=== PATIENT | male | born 1935 | race Caucasian/White ===

== ENCOUNTER → 2018-10-07 15:34 | Outpatient (CLI) | payer MEDICARE, OTHER, SELFPAY ==
[2018-10-07 18:03] LABS: Anion Gap 8 (5-15); BUN 26 mg/dL (7-18); BUN/Creat Ratio 25.5 RATIO (10-20); Calcium,Total 8.9 mg/dL (8.5-10.1); Chloride 105 mmol/L (98-107); Creatinine, Serum 1.02 mg/dL (0.70-1.30); EST Glomerular Filtration Rate 74 mL/min (>60); Est Glom Filt Rate - Afr Amer 90 mL/min (>60); Ferritin 518 ng/mL (26-388); Glucose 114 mg/dL (74-106); Iron 88 ug/dL (65-175); Potassium 4.1 mmol/L (3.5-5.1); Sodium Level 140 mmol/L (136-145); T4 Free Direct 0.87 ng/dL (0.76-1.46); Thyroid Stim Hormone (TSH) 6.21 uIU/mL (0.358-3.74)
[2018-10-07 18:07] LABS: Absolute Lymphocyte Count 2.55 X10^3/ul (0.83-4.51); Absolute Neutrophil Count 4.1 X10^3/uL (2.0-7.7); Basophil# 0.07 X10^3/uL; Basophil% 0.9 % (0-1); Eosinophil# 0.37 X10^3/uL; Eosinophils% 4.7 % (0-5); Hematocrit 42.4 % (40-54); Hemoglobin 14.1 g/dl (13.0-16.5); Lymphocyte # 2.55 X10^3/ul (4.0); Lymphocyte % 32.7 % (19-41); Mean Corp Hgb Conc 33.3 g/gl (32-36); Mean Corpuscular Hgb 33.7 pg (27.0-32.0); Mean Corpuscular Volume 101.4 fL (80-94); Mean Platelet Vol. 12.2 fl (6.2-12.0); Monocyte# 0.67 X10^3/uL; Monocyte% 8.6 % (0-10); Neutrophil # 4.12 X10^3/uL (2.7-7.7); Platelet Count 244 K/mm3 (150-450); RBC Distribution Width CV 23.8 % (11.6-14.6); RBC Distribution Width SD 88.4 fl (35.1-43.9); Red Blood Count 4.18 M/mm3 (4.6-6.2); White Blood Count 7.8 K/mm3 (4.4-11.0)
[2018-10-07 18:11] LABS: Differential Indicated SCAN CRITERIA MET; POSITIVE COUNT NO; POSITIVE DIFFERENTIAL NO; POSITIVE MORPHOLOGY YES
[2018-10-07 19:35] LABS: Platelet Estimate ADEQUATE (ADEQ); Platelet Morphology LARGE
[2018-10-07 19:36] LABS: Anisocytosis 3+; Differential Comment SCANNED; Reactive Lymphocyte RARE
--- OUTSIDE RECORDS SUMMARY | 2018-12-03 08:32 | XMS RPT_ITS ---
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 criteria. Please note revised GLUCOSE reference range effective 2017. LAB L501.1000 7-18 mg/dL High BUN 26 LAB L501.1100 0.70-1.30 mg/dL Normal CREAT,SERUM 1.02 Result Comment: The validity of the calculated GFR AND GFRAA in patients over 70 years has not been determined. Clinical correlation is essential. LAB L501.1110 >60 mL/min Normal EST GFR 74 Result Comment: Non- GFR Calc LAB L501.1115 >60 mL/min Normal EST GFR - AA 90 Result Comment: GFR Calc LAB L501.1300 10-20 RATIO High BUN/CRE 25.5 LAB L501.2200 8.5-10.1 mg/dL CA Normal 8.9 LAB L501.5300 136-145 mmol/L NA Normal 140 LAB L501.5600 3.5-5.1 mmol/L K Normal 4.1 Result Comment: Slight Hemolysis, Result may be falsely increased. LAB L501.5900 98-107 mmol/L Normal CL 105 LAB L501.6100 21.0-32.0 mmol/L Normal CO2 27.0 LAB L501.6200 5-15 Normal 8 GAP Performed By: #### L500.2500, L501.9520, L503.6150, L503.6550, L506.0400 #### [facility] [address] [place], [place], [id number] THYROID STIM HORMONE Collected: 10/07/2018 Status: F Source: [facility] (TSH) 3:38 PM [facility] REPOSITORY TYPE CODE TESTS RESULT OUT OF RANGE REFERENCE UNITS LAB L501.9520 0.358-3.74 uIU/mL High TSH 6.21 Performed By: #### L500.2500, L501.9520, L503.6150, L503.6550, L506.0400 #### [facility] [address] [place], [place], [id number] IRON Collected: 10/07/2018 Status: F Source: [facility] 3:38 PM [facility] REPOSITORY TYPE CODE TESTS RESULT OUT OF RANGE REFERENCE UNITS LAB L503.6150 65-175 ug/dL Normal IRON 88 Result Comment: Slight Hemolysis, Result may be falsely increased. Performed By: #### L500.2500, L501.9520, L503.6150, L503.6550, L506.0400 #### [facility] [address] [place], [place], [id number] FERRITIN Collected: 10/07/2018 Status: F Source: [facility] 3:38 PM [facility] REPOSITORY TYPE CODE TESTS RESULT OUT OF REFERENCE UNITS RANGE LAB L503.6550 26-388 ng/mL High FERRITIN 518 Performed By: #### L500.2500, L501.9520, L503.6150, L503.6550, L506.0400 #### [facility] [address] [place], [address] T4 FREE DIRECT Collected: 10/07/2018 Status: F Source: [facility] 3:38 PM [facility] REPOSITORY TYPE CODE TESTS RESULT OUT OF RANGE REFERENCE UNITS LAB L506.0400 0.76-1.46 ng/dL Normal T4 FREE 0.87 DIRECT Performed By: #### L500.2500, L501.9520, L503.6150, L503.6550, L506.0400 #### [facility] [address] [place], [address] CBC W/DIFF, AUTOMATED Collected: 10/07/2018 Status: F Source: [facility] 3:38 PM [facility] REPOSITORY TYPE CODE TESTS RESULT OUT OF RANGE REFERENCE UNITS LAB L100.1000 4.4-11.0 K/mm3 Normal WBC 7.8 LAB L100.1200 4.6-6.2 M/mm3 Low RBC 4.18 LAB L100.1300 13.0-16.5 g/dl Normal HGB 14.1 LAB L100.1400 40-54 % Normal HCT 42.4 LAB L100.1500 80-94 fL High MCV 101.4 LAB L100.1600 27.0-32.0 pg High MCH 33.7 LAB L100.1700 32-36 g/gl Normal MCHC 33.3 LAB L100.1810 11.6-14.6 % High RDW CV 23.8 LAB L100.1820 35.1-43.9 fl High RDW SD 88.4 LAB L100.1900 150-450 K/mm3 Normal PLT 244 LAB L100.2000 6.2-12.0 fl High MPV 12.2 LAB L100.2100 47-70 % Normal NEUT% 53.0 LAB L100.2200 19-41 % Normal LY% 32.7 LAB L100.2300 0-10 % Normal MONO% 8.6 LAB L100.2400 0-5 % Normal EO% 4.7 LAB L100.2500 0-1 % Normal BASO% 0.9 LAB L100.2550 0.0-0.9 % Normal IM GRAN % 0.100 Result Comment: IG% - Immature Granulocytes (promyelocytes, myelocytes and metamyelocytes) > 1% indicates that a LEFT SHIFT is Present. LAB L100.2620 2.0-7.7 X10 3/uL Normal Absolute Neut 4.1 LAB L100.2720 0.83-4.51 X10 3/ul Normal Absolute Lymph 2.55 LAB L100.4500 Normal SMEAR COMMENT SCANNED Result Comment: FEW BANDS NOTED ON SLIDE REVIEW LAB L100.4700 Normal RARE REACTIVE LYMPH LAB L100.5500 ADEQ Normal PLT EST ADEQUATE LAB L100.5650 Normal PLT LARGE MORPH Result Comment: RARE GIANT PLATELETS NOTED LAB L100.7300 Normal ANISO 3+ Performed By: #### L100.0100 #### [facility] [address] [place], [address] ALLERGIES ALLERGIES DATE TYPE / CODE NAME / CODE REACTION SEVERITY SOURCE 12/25/2013 Drug No Known Unknown [facility] Allergy/4160 Allergies/F00 Hospital 22309(SNOMED 0304238(RXNOR Repository CT) M) ENCOUNTERS ENCOUNTERS ADMIT/DISCHARGE ACCOUNT ADMITTING ENCOUNTER LOCATION SOURCE NUMBER CLASS 10/07/2018 [id number] Ambulatory [address] ing:BFHLAB Repository PAYERS PAYERS ENCOUNTER GUARANTOR PAYER SUBSCRIBER SOURCE 10/07/2018 Marily Vallejo Primary Marily Marinelli [id number] [facility] [id number] Number: Repository [id number]: [phone] [id number] [phone] () Date:2018-10-07 10/07/2018 Secondary Marily Marinelli [facility] Number: [id number] 11Effective Repository Date:[id number], [place] [address]OK: 10/07/2018 Tertiary NOT GIVENUNK [facility] Insurance:SELF PAY [facility] Number: Effective Repository Date:2018-10-07
== END ==
PROVIDERS: Family Provider Family Medicine; PCP Family Medicine; Visit Provider Family Medicine
DX: E03.9 Hypothyroidism, unspecified (principal); E83.19 Other disorders of iron metabolism; D64.9 Anemia, unspecified
CPT/HCPCS: 36415; 80048; 82728; 83540; 84439; 84443; 85025

== ENCOUNTER → 2018-11-25 13:57 | Outpatient (CLI) | payer MEDICARE, OTHER, SELFPAY ==
[2018-11-25 17:52] LABS: T4 Free Direct 1.13 ng/dL (0.76-1.46); Thyroid Stim Hormone (TSH) 0.57 uIU/mL (0.358-3.74)
== END ==
PROVIDERS: Family Provider Family Medicine; PCP Family Medicine; Visit Provider Family Medicine
DX: E03.9 Hypothyroidism, unspecified (principal)
CPT/HCPCS: 36415; 84439; 84443

== ENCOUNTER → 2020-04-21 10:12 | Outpatient (CLI) | payer MEDICARE, OTHER, SELFPAY ==
[2013-12-29 09:51] VITALS: BMI 25.8
[2020-04-21 12:36] LABS: Thyroid Stim Hormone (TSH) 1.47 uIU/mL (0.358-3.74)
== END ==
PROVIDERS: PCP Family Medicine; Visit Provider Family Medicine
DX: E03.9 Hypothyroidism, unspecified (principal)
CPT/HCPCS: 36415; 84439; 84443

== ENCOUNTER → 2025-09-01 | Outpatient (CLI) | payer MEDICARE, OTHER, SELFPAY ==
--- OUTSIDE RECORDS SUMMARY | 2025-09-01 11:21 | XMS RPT_ITS | CCD ---
Author Organization [facility] Inform ion Partnership [facility] Care Team Providers Care Septic Tank Servicer Name Role Phone MAGI PRITCHARD (TURNER MACHINE OPERATOR) Unavailable Unavailable Results Test Name Value Interpretation Reference Range Facil ity Urgent Care Visit Reporton 0 07-02-2020 Urgent Care Visit Report [facility] [address] [place] [address] OFFICE VISIT Date of Service: 07/02/20 MR#: [id number] Acct: [id number] Name: MARILY BONE Rep #: [id number] : 1935 Provider: SHILPI Wall Age/Sex: 84/M Location: [facility] Status: Signed Intake Vital Signs 07/02/20 BMI 25.8 07/02/20 Height 5 ft 10.5 in 07/02/20 Weight: 182 lb 07/02/20 BMI 25.7 07/02/20 BP 142/64 H 07/02/20 Blood Pressure Location Lt brachial 07/02/20 Position Sitting 07/02/20 Respiration 16 07/02/20 Pulse 97 07/02/20 Pulse Source Monitor 07/02/20 Temp 97.3 F L 07/02/20 Temp Source Temporal 07/02/20 Pulse Oximetry (%) 98 07/02/20 Oxygen Delivery Method room air Intake Visit Reasons: BEE STING LEFT HAND Allergies No Known Allergies Allergy (Verified 07/02/20 08:24) Medications Calcium (Elemental) [Os-Isaías 500] 500 mg PO BIDCM 12/25/13 [History Confirmed 07/02/20] Cholecalciferol (Vitamin D3) [Vitamin D3] 1,000 unit PO DAILY 12/25/13 [History Confirmed 07/02/20] Levothyroxine [Synthroid] 125 mcg PO DAILY 12/25/13 [History Confirmed 07/02/20] prednisone 10 mg tablet 10 mg PO QDAY 12 Days #30 tab 07/02/20 [Rx Confirmed 07/02/20] ON LICENSE OF [facility] Medical History (Updated 07/02/20 @ 08:32 by SHILPI Albrecht) History of prostate cancer (Acute) History of skin cancer (Acute) Incontinence (Acute) Thyroid disease (Acute) unexplained bruises (Acute) Surgical History (Updated 07/02/20 @ 08:30 by Nick Arguello) History of hernia surgery (Acute) Social History (Updated 07/02/20 @ 08:33 by SHILPI Albrecht) Smoking Status: Never smoker [facility] HPI Details: MARILY BONE, is a 84 M who presents to the office today for evaluation of bee sting to the left hand and right forearm. Patient states that yesterday morning while he was outside he started to be stung in the left hand under a glove and right forearm up his shirt. He states that since then the left hand in particular has gotten worse with increased swelling and redness as well as stiffness due to the swelling. He denies numbness, tingling or loss range of motion. No shortness of breath, difficulty breathing or chest pain. No other associated symptoms or alleviating/aggravating factors. ROS Const Constitutional: Positive for other (6 system ROS completed with pertinent findings in HPI otherwise normal.) Exam Const General: cooperative, healthy appearing [facility] Head: normocephalic, atraumatic Ears: hearing grossly normal bilaterally Nose: external nose normal Face and sinus: normal facial exam, face symmetric Mouth: oral mucosae normal Throat: posterior oropharynx normal Eyes General: appearance normal, both eyes and all related structures Resp Effort Inspection: normal respiratory effort Auscultation: Bilateral: Clear to Auscultation Cardio Palpation: normal PMI Rate: regular rate Rhythm: regular rhythm Skin Other: Soft tissue swelling and erythema to the dorsum of the left hand with a centralized area where the stinger was. Additional erythematous and slightly raised area to the right forearm with very minimal swelling. There is no streaking or axillary lymph node involvement. Neuro General: alert, CN's II-XI intact bilaterally Psych Appearance: grossly normal Mental Status: mental status grossly normal Assessment Plan Problems 1. Accidental bee sting T63.441A Status Acute Plan Prednisone as prescribed today. Encouraged to get plenty of rest, drink lots of clear liquids, and use Tylenol or Ibuprofen (unless contraindicated) for comfort. Patient also educated on other symptomatic management techniques. To be seen in 7-10 days if no improvement; sooner if worsening of symptoms. Patient advised of potential red flags and when appropriate to report to the ED. Patient verbalized understanding and agreement with all the above. Medications New: prednisone Take 4 tabs once daily days 1-3 3 tabs once daily days 4-6 2 tabs once daily days 7-9 and 1 tab once daily days 10-12. 10 mg PO QDAY 12 days 30 tabs 0RF L25.9 Coding Level of Care Code Off vis,new,level 3 Diagnoses Accidental bee sting T63.441A 07/02/20832 Date Estuardo Hackett Signature: Date (if applicable) CC: Normal [facility] T4 Free Directon 04-21-2020 T4 FREE DIRECT 1.00 ng/dL Normal 0.76-1.46 [facility] Comment on above: Performed By: #### [id number], L506.0400 #### [facility] [address] [place], [place], [id number] Thyroid Stim Hormone (TSH)on 04-21-2020 TSH Qn 1.47 uIU/mL Normal 0.358-3.74 [facility] Comment on above: Performed By: #### [id number], L506.0400 #### [facility] [address] [place], [place], [id number] CNOVon 06-14-2017 CNOV Office Visit ([facility]) OCTAVIANO BONE ([id number]) 1935 MDate Time Provider Department06/14/17 8:30 AM ISHA MORGAN (SHASHI) [facility] During your visit today, we recorded the following information about you: Temperature Pulse Respiration Blood pressure 98.2 degrees 76/minute 16/minute 128/66 Weight 80.4 kgIngbryn Morgan CNP 06/14/2017 9:35 AM SignedHPI Patient is a is a reliable 81 year old male with a 3 day history or leftear pain. States the pain is a ANDquot;jabbingANDquot; pain that has kept him uplast night. States he thinks it may be draining. States it feelsANDquot;pluggedANDqu ot;. {t states he wears hearing aids daily. Nothing makes itbetter or worse. No other concerns at this time.Review of SystemsConstitutional: Negative for chills, fever and malaise/fatigue.HENT: Positive for ear pain (left). Negative for congestion and sore throat.Respiratory: Positive for cough. Negative for sputum production, shortness ofbreath and wheezing.Cardiovascular: Negative.Gastrointestinal : Negative for nausea and vomiting.Musculoskeletal: Negative for myalgias.Neurological: Negative for dizziness and headaches.Endo/Heme/Aller gies: Negative for environmental allergies.PAST MEDICAL HISTORYDiagnosis Date- 1St degree AV block 12/25/13- BCC (basal cell carcinoma of skin)- Erectile dysfunction- Macrocytosis without anemia- Malignant neoplasm prostate (HCC)- Unspecified hypothyroidism- Urinary incontinencePAST SURGICAL HISTORYNo date: APPENDECTOMY08/10/08: COLONOSCOP W/ OR W/O [facility] SPECNo date: CYSTOSCOPY12/29/13: HERNIA REPAIR HX Comment: Laparoscopic left11/2006: MOHS ANY STAGE EA ADD BLOCK Comment: BCC right lateral [id number]: PAST SURGICAL HISTORY OF Comment: suprapubic prostatectomy02/2011: PAST SURGICAL HISTORY OF Comment: right [id number]: PAST SURGICAL HISTORY OF Comment: left cataractALLERGIES Review of patient's allergies indicates no known allergies.MEDICATIONSMisc ellaneous Medical Supply ([facility]) misc Dx: urinaryincontinence, prostate cancerlevothyroxine (SYNTHROID) 75 mcg tablet Take 1 tablet by mouth once daily. Takeon empty stomach. For ThyroidCALCIUM 500 MG TAB Take one(1) tablet twice daily.CHOLECALCIFEROL (VITAMIN D3) 1,000 UNIT TAB Take one(1) tablet two(2) timesdaily.FAMILY HISTORY Heart Father Cancer Mother Comment: abdominal Stroke FatherSocial HistorySubstance Use Topics- Smoking status: Never Smoker- Smokeless tobacco: Not on file- Alcohol use NoBP 128/66 Pulse 76 Temp 36.8 ?C (98.2 ?F) (Tympanic) Resp 16 Wt 80.4 kg(177 lb 3.2 oz) BMI 25.43 kg/n1Mwfgmbov ExamConstitutional: He is well-developed, well-nourished, and in no distress. Vitalsigns are normal.Mildly ill.HENT:Head: Normocephalic and atraumatic.Right Ear: Tympanic membrane, external ear and ear canal normal.Left Ear: Tympanic membrane normal.Nose: No mucosal edema or rhinorrhea. Right sinus exhibits no maxillary sinustenderness and no frontal sinus tenderness. Left sinus exhibits no maxillarysinus tenderness and no frontal sinus tenderness.Mouth/Throat: Uvula is midline, oropharynx is clear and moist and mucousmembranes are normal. No oropharyngeal exudate, posterior oropharyngeal edemaor posterior oropharyngeal erythema.Left ear with tragal pain with manipulation. Drainage noted.Neck: Neck supple.Cardiovascular: Normal rate, regular rhythm and normal heart sounds.Pulmonary/Chest: Effort normal and breath sounds normal. He has no wheezes. Hehas no rales.Lymphadenopathy: Head (right side): No submental, no submandibular and no tonsillaradenopathy present. Head (left side): No submental, no submandibular and no tonsillaradenopathy present. He has no cervical adenopathy.Submandibular fullness.Neurological: He is alert.Skin: Skin is warm and dry.Nursing note and vitals reviewed.ASSESSMENT/PLAN: 1. Acute otitis externa of left ear, unspecified type - ICD9: 380.10, ICD10:H60.502- Will start ABX drops- Keep ear clean and dry- Tylenol or Ibuprofen for pain- Avoid hearing aide in the affected ear until infection is resolved- GKBTNFTY-VAIHWKSHH-OISBMP ORT 3.5 MG-10,000 UNIT/ML-1 % EAR DROPS,SUSPPrescription instructions reviewed with patient as applicable. Patient advisedif symptoms do not improve in 2-3 days or if symptoms worsen sooner, to contacttheir primary care physician. Potential red flag symptoms discussed with thepatient. Reviewed appropriate action plan to take if red flag symptoms occur.Patient agreeable to treatment plan.Isha Morgan CNPReferring Provider: SELF [[id number]]Allergies As of Date: 06/14/2017(No Known Allergies)Date Reviewed: 06/14/2017Reviewed by: Isha (Shashi) Cathy - Fully AssessedReason for Visit: left ear pain [Other] Cmt: x 2 daysPrimary Visit Diagnosis:Acute otitis externa of left ear, unspecified type [H60.502]Order(s):neomyci z-vilpdghll-tyhplhwhlpcra e (CORTISPORIN) 3.5-10,000-1 mg/mL-unit/mL-% otic suspensionUse 4 Drops in the left ear four times daily for 7 days.Disp: 1 BottleRfl: 0Prescriptions as of 06/14/2017 Sig: MISCELLANEOUS MEDICAL SUPPLY * Dx: urinary incontinence, pro* LEVOTHYROXINE 75 MCG TABLET Take 1 tablet by mouth once d* * CALCIUM 500 MG TABLET Take one(1) tablet twice eliana* * CHOLECALCIFEROL (VITAMIN D3) * Take one(1) tablet two(2) anthony* GNLEWIVD-SPUYTBDLZ-SZSLIA ORT * Use 4 Drops in the left ear f*Problem List As Of Date 06/14/2017 Noted Resolved 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] INVALID FOR* Unspecified hypothyroidism [E03.9] INVALID FOR* Priority: A Hypertrophy of prostate with urinary obstructio*INVALID FOR*05/27/2013 Open wound(s) (multiple) of unspecified site(s)*INVALID FOR*06/14/2012 ACTINIC KERATOSES (Premalignant AK's) [L57.0] INVALID FOR* Priority: D Neoplasm Uncertain Behavior (NUB) Skin: R/O BCC*INVALID FOR*06/14/2012 ACTINIC DAMAGE///CHR SOLAR SKIN DAMAGE NOS [L57*INVALID FOR*11/22/2011 Scar condition and fibrosis of skin [L90.5] INVALID FOR*06/14/2012 PERS HX BCC SKIN CANCER: 02/01/2005: 3 BCC's R s*INVALID FOR*06/14/2012 SOLAR LENTIGINES///DYSCHROMIA OTHER [L81.9] INVALID FOR*06/14/2012 Elevated prostate specific antigen (PSA) [R97.2*INVALID FOR*05/27/2013 Malignant neoplasm of prostate [C61] INVALID FOR* Priority: A More... URETER INJURY-CLOSED [S37.10XA] INVALID FOR* POSTOP URETHRAL STRICTUR [QQC2362] INVALID FOR* H/O BCC////MALIG NEOPLASM SKIN FACE NEC [173.3] INVALID FOR*06/14/2012 PMH - PAST MEDICAL HISTORY OF 06/14/2012 More... Stress incontinence, male [N39.3] INVALID FOR* Priority: A Benign neoplasm of skin of trunk, except scrotu*INVALID FOR*06/14/2012 Seborrheic Dermatitis: chest area [L21.8] INVALID FOR* Priority: D Rosacea: localized R cheek face flushed scar [L*INVALID FOR* Priority: D BNC (bladder neck contracture) [N32.0] INVALID FOR* Eczema intertrigo [L30.4] INVALID FOR* Priority: D Irritant contact dermatitis [L24.9] INVALID FOR* Priority: D PERS HX BCC SKIN CANCER: R Jawline Face: *INVALID FOR* Priority: D Xerosis cutis [L85.3] INVALID FOR* Priority: D Macrocytosis without anemia [D75.89] Erectile dysfunction [N52.9] Continuous leakage of urine [N39.45] INVALID FOR*Prescriptions ordered this encounter Disp Refills Start End CBDFJEJX-UQQNYOPCD-DOAIRT ORT 3.5 MG-* 1 John* 0 06/14/2017 06/21/2017 Route: LEFT EAR Sig: Use 4 Drops in the left ear four times daily for 7 days. Status:Closed by ISHA MORGAN CNP on 06/14/17 [facility] PROGRESSon 06-14-2017 PROGRESS HNO ID: [id number] thor: Isha (Shashi) FishutService: (none)Author Type: Nurse PractitionerType: Progress NotesFiled: 06/14/2017 9:35 AMNote Text:HPI Patient is a is a reliable 81 year old male with a 3 day history orleft ear pain. States the pain is a "jabbing" pain that has kept him uplast night. States he thinks it may be draining. States it feels"plugged". {t states he wears hearing aids daily. Nothing makes it betteror worse. No other concerns at this time.Review of SystemsConstitutional: Negative for chills, fever and malaise/fatigue.HENT: Positive for ear pain (left). Negative for congestion and sorethroat.Respiratory: Positive for cough. Negative for sputum production, shortnessof breath and wheezing.Cardiovascular: Negative.Gastrointestinal : Negative for nausea and vomiting.Musculoskeletal: Negative for myalgias.Neurological: Negative for dizziness and headaches.Endo/Heme/Aller gies: Negative for environmental allergies.PAST MEDICAL HISTORYDiagnosis Date- 1St degree AV block 12/25/13- BCC (basal cell carcinoma of skin)- Erectile dysfunction- Macrocytosis without anemia- Malignant neoplasm prostate (HCC)- Unspecified hypothyroidism- Urinary incontinencePAST SURGICAL HISTORYNo date: APPENDECTOMY08/10/08: COLONOSCOP W/ OR W/O [facility] SPECNo date: CYSTOSCOPY12/29/13: HERNIA REPAIR HX Comment: Laparoscopic left11/2006: MOHS ANY STAGE EA ADD BLOCK Comment: BCC right lateral [id number]: PAST SURGICAL HISTORY OF Comment: suprapubic prostatectomy02/2011: PAST SURGICAL HISTORY OF Comment: right [id number]: PAST SURGICAL HISTORY OF Comment: left cataractALLERGIES Review of patient's allergies indicates no known allergies.MEDICATIONSMisc ellaneous Medical Supply ([facility] [facility] [place]x:urinary incontinence, prostate cancerlevothyroxine (SYNTHROID) 75 mcg tablet Take 1 tablet by mouth once daily.Take on empty stomach. For ThyroidCALCIUM 500 MG TAB Take one(1) tablet twice daily.CHOLECALCIFEROL (VITAMIN D3) 1,000 UNIT TAB Take one(1) tablet two(2)times daily.FAMILY HISTORY Heart Father Cancer Mother Comment: abdominal Stroke FatherSocial HistorySubstance Use Topics- Smoking status: Never Smoker- Smokeless tobacco: Not on file- Alcohol use NoBP 128/66 Pulse 76 Temp 36.8 ?C (98.2 ?F) (Tympanic) Resp 16 Wt80.4 kg (177 lb 3.2 oz) BMI 25.43 kg/l6Gskorslx ExamConstitutional: He is well-developed, well-nourished, and in no distress.Vital signs are normal.Mildly ill.HENT:Head: Normocephalic and atraumatic.Right Ear: Tympanic membrane, external ear and ear canal normal.Left Ear: Tympanic membrane normal.Nose: No mucosal edema or rhinorrhea. Right sinus exhibits no maxillarysinus tenderness and no frontal sinus tenderness. Left sinus exhibits nomaxillary sinus tenderness and no frontal sinus tenderness.Mouth/Throat: Uvula is midline, oropharynx is clear and moist and mucousmembranes are normal. No oropharyngeal exudate, posterior oropharyngealedema or posterior oropharyngeal erythema.Left ear with tragal pain with manipulation. Drainage noted.Neck: Neck supple.Cardiovascular: Normal rate, regular rhythm and normal heart sounds.Pulmonary/Chest: Effort normal and breath sounds normal. He has nowheezes. He has no rales.Lymphadenopathy: Head (right side): No submental, no submandibular and no tonsillaradenopathy present. Head (left side): No submental, no submandibular and no tonsillaradenopathy present. He has no cervical adenopathy.Submandibular fullness.Neurological: He is alert.Skin: Skin is warm and dry.Nursing note and vitals reviewed.ASSESSMENT/PLAN: 1. Acute otitis externa of left ear, unspecified type - ICD9: 380.10,ICD10: H60.502- Will start ABX drops- Keep ear clean and dry- Tylenol or Ibuprofen for pain- Avoid hearing aide in the affected ear until infection is resolved- YCOICUPJ-RIVDFRMYQ-XLHASE ORT 3.5 MG-10,000 UNIT/ML-1 % EAR DROPS,SUSPPrescription instructions reviewed with patient as applicable. Patientadvised if symptoms do not improve in 2-3 days or if symptoms worsensooner, to contact their primary care physician. Potential red flagsymptoms discussed with the patient. Reviewed appropriate action plan totake if red flag symptoms occur. Patient agreeable to treatment plan.Isha Morgan CNP Normal [facility] Encounters Encounter Date Encounter Type Care Provider Facility Start: 06-14-2017 End: 06-14-2017 Ambulatory MAGI (TURNER MACHINE OPERATOR) [facility] Summary Purpose Family History No Family History Records FoundNo Family History Records Found Advance Directives No Advanced Directives Records FoundNo Advanced Directives Records Found Additional Source Comments (unrecognized sect ion and content) No Status Records FoundNo Status Records Found INFORMATION SOURCE (unrecogn ized section and content) DATE CREATED AUTHOR 05/07/2018 [facility] DATE CREATED AUTHOR AUTHOR'S ORGANIZ ATION 07/02/2020 [facility] FOR RECORDS PERTAINING TO PATIENTS WHO ARE OR HAVE BEEN ENROLLED IN A CHEMICAL DEPENDENCY/SUBSTANCEABUSE PROGRAM, SOME INFORMATION MAY BE OMITTED. This clinical summary was aggregated from multiple sources. Caution should be exercised in using it in the provision of clinical care. This summary normalizes information from multiple sources, and as a consequence, information in this document may materially change the coding, format and clinical context of patient data. In addition, data may be omitted in some cases. CLINICAL DECISIONS SHOULD BE BASED ON THE PRIMARY CLINICAL RECORDS. [employer] provides no warranty or guarantee of the accuracy or completeness of information in this document.
--- NOTE | 2025-09-01 11:29 | RAD_ITS ---
PROCEDURE: CHEST PA AND LATERAL 09/01/2025 REASON FOR EXAM: SOB TECHNIQUE: Procedure Code: RADCXR Modality: DX Procedure: CHEST PA AND LATERAL COMPARISON: None FINDINGS: There is cardiomegaly, pulmonary venous hypertension and pulmonary interstitial edema consistent with congestive heart failure. There are no significant pleural effusions. There is calcific vascular disease of the thoracic aorta. There is mild dextroscoliosis of the thoracolumbar spine. The upper abdominal bowel gas pattern is normal. RAD/Chest PA and Lateral IMPRESSION: Mild congestive heart failure. Reading Location: [place] [address]
[2025-09-01 12:10] LABS: Hematocrit 35.3 % (40-54); Hemoglobin 11.9 g/dL (13.0-16.5); Immature Granulocytes Count 0.170 X10^3/uL (0.0-0.0); Mean Corp Hgb Conc 33.7 g/dL (32-36); Mean Corpuscular Volume 96.7 fL (80-94); Mean Platelet Vol. 11.9 fl (6.2-12.0); NRBC Flagged by Analyzer 0 % (0-5); POSITIVE MORPHOLOGY YES; Platelet Count 328 K/mm3 (150-450); RBC Distribution Width CV 27.2 % (11.6-14.6); RBC Distribution Width SD 94.3 fl (35.1-43.9); Red Blood Count 3.65 M/mm3 (4.6-6.2); White Blood Count 11.1 K/mm3 (4.4-11.0)
[2025-09-01 12:55] LABS: AST(SGOT) 39 U/L (<=37); Alanine Aminotransfer ALT/SGPT 32 U/L (<=46); Albumin, Serum 4.1 g/dL (3.4-4.8); Alkaline Phosphatase 98 U/L (40-129); Anion Gap 9 (5-15); BUN 17 mg/dL (4-19); BUN/Creat Ratio 19.4 RATIO (10-20); Calcium,Total 9.7 mg/dL (7.6-11.0); Carbon Dioxide 25.0 mmol/L (21.0-32.0); Chloride 103 mmol/L (98-108); Globulin 2.7 g/dL (2.2-4.2); Glucose 141 mg/dL (70-99); Potassium 4.6 mmol/L (3.3-5.1); Pro- Brain NATRIURETIC PEPTIDE 606 pg/mL (<=1800)
[2025-09-01 13:14] LABS: Differential Indicated SCAN CRITERIA MET
[2025-09-01 13:16] LABS: Anisocytosis 1+
[2025-09-01 14:36] LABS: D-Dimer Quantitative (DVT/PE) 0.80 FEU/ug/m (0.27-0.49)
== END | disposition home or self-care (01) ==
LOC: LAB 10:59
PROVIDERS: PCP Nurse Practitioner Family; Referring Provider Nurse Practitioner Family; Visit Provider Nurse Practitioner Family
DX: R06.02 Shortness of breath (principal)
CPT/HCPCS: 36415; 71046; 80053; 83880; 85025; 85379

== ENCOUNTER 2025-09-21 11:17 | Emergency (ER) | payer MEDICARE, OTHER, SELFPAY ==
[2025-09-21] VITALS (9 sets, daily range): BP systolic 120–162; BP diastolic 59–73; PULSE 62–98; RESP 15–26; TEMP 36.3–36.7; O2SAT 93–100; BMI 26.2
--- NOTE | 2025-09-21 11:34 | EKG12_ITS ---
Test Reason : SOB Blood Pressure : */* mmHG Vent. Rate : 76 BPM Atrial Rate : 76 BPM P-R Int : 210 ms QRS Dur : 136 ms QT Int : 426 ms P-R-T Axes : 47 -17 28 degrees QTcB Int : 479 ms Sinus rhythm with 1st degree A-V block Right bundle branch block Abnormal ECG Confirmed by Lance Monzon ([id number]), health editor JONNIE MOODY ([id number]) on 09/22/2025 10:34:10 AM Referred By: Confirmed By: Lance Monzon
--- NOTE | 2025-09-21 12:00 | EDS_ITS ---
HPI History of Present Illness Chief Complaint: Shortness of Breath Narrative Narrative: Patient is a 89-year-old male with a past medical history of of thyroid disease, prostate cancer, skin cancer who presented to the emergency department the chief complaint of shortness of breath and abnormal CT of his chest results. He states that his shortness of breath has been going on for a while however has been progressively worsening he states that last week he had blood work obtained by his primary care physician and a chest x-ray. He states that they then proceeded to order a CT of his chest today and by the time he was home there was a message on the answering machine and he was advised to come to the emergency department as there is concern for blood clots. He denies any history of blood clots denies any recent travel history. He states he has not had a colonoscopy in a significant mount time he states that has been many years and states that his stools have been irregular lately as well but denies any black stools denies any blood in the stool [facility] Medical History Incontinence unexplained bruises Thyroid disease History of prostate cancer History of skin cancer Home Medications Medication Instructions Recorded Last Taken Type calcium carbonate 500 mg PO BIDCM 12/25/13 Unk nown History cholecalciferol (vitamin D3) 50 1,000 unit PO DAILY Unknown History mcg (2,000 unit) tablet levothyroxine 125 mcg tablet 125 mcg PO DAILY 12/25/13 Unknown History apixaban 5 mg (74 tabs) tablets in See Rx Instructions PO .COMPLEX 09/21/25 Unknown Rx a dose pack (Eliquis DVT-PE Treat #74 tabs 30D Start) Allergy/AdvReac Type Severity Reaction Status Date / Time No Known Allergies Allergy Verified 09/21/25 11:18 Surgical History History of hernia surgery Social History Smoking Status: Never smoker ROS ROS ED ROS Narrative Constitutional: Denies any fevers, chills Cardiovascular: Complains of chest heaviness denies palpitations Respiratory: Complains of shortness of breath Abdomen: Denies abdominal pain nausea vomiting : Denies any urinary symptoms Neurological: Denies any numbness, some tingling Musculoskeletal: Denies back pain Skin: Denies any rashes or lesions EXAM Physical Exam Narrative Exam Narrative: General: Patient is lying in bed rest comfortably did not appear to be in acute distress Head: Atraumatic, normocephalic Eyes: PERRL bilaterally, EOMI bilaterally, no conjunctival injection noted Neck: Soft, supple, trachea midline Cardiovascular: Regular rate and rhythm Respiratory: Clear to auscultation bilaterally Abdomen: No tenderness to palpation, soft, nondistended Extremities: +4/5 strength noted in the bilateral lower extremities Neurological: Patient following commands knew that he was at [facility] the year is 2024 Skin: Warm, dry, tact no rashes or lesions noted Const Vital Signs: 09/21/25 11:17 09/21/25 12:02 09/21/25 12:30 Temperature 97.4 F L Temperature Source Oral Pulse Rate 98 67 Respiratory Rate 26 H 15 Respiratory Effort Normal Non-Labored Respiratory Depth Normal Respiratory Pattern Normal Blood Pressure 162/73 H 134/64 H Blood Pressure Mean 102 84 Pulse Ox 98 96 Oxygen Delivery Method Room Air 09/21/25 12:45 09/21/25 13:16 09/21/25 14:39 Temperature Temperature Source Pulse Rate 62 63 Respiratory Rate 20 H 18 Respiratory Effort Respiratory Depth Respiratory Pattern Blood Pressure 129/59 H 130/61 H Blood Pressure Mean 80 84 Pulse Ox 96 93 98 Oxygen Delivery Method Room Air Room Air 09/21/25 15:21 Temperature Temperature Source Pulse Rate 65 Respiratory Rate 18 Respiratory Effort Respiratory Depth Respiratory Pattern Blood Pressure 120/61 Blood Pressure Mean 80 Pulse Ox 100 Oxygen Delivery Method Room Air MDM MDM MDM Narrative Medical decision making narrative: Patient 89-year-old male who presents to the emergency department the chief complaint of dyspnea on exertion and findings of pulmonary emboli on his CT of the chest performed today. On the differential diagnose includes but not limited to pulmonary emboli, right heart strain, pleural effusion, CHF. Once workup is obtained reviewed he will be reevaluated. Patient's CBC reviewed and showed no evidence leukocytosis white blood count over 9.2, he was 1.1, plate count was noted be 294. Patient's sodium was normal 139, potassium normal 4, creatinine 0.89. Patient's troponin was 46 with a delta troponin of 39 proBNP normal at 766. Patient is EKG reviewed showed sinus rhythm with evidence of first-degree AV block with evidence of right bundle branch block this is compared to EKG from December 25, 2013 which shows new evidence of right bundle branch block. Patient CTA of the chest was reviewed from earlier today which showed ascending aorta dilated to 4.1 cm was given referral to vascular surgery was given a hardcopy of these results as well. Clot visible within the right lower lobe branch clot is visible within the proximal and distal portions of the right upper lobe branches as well. Partially occlusive clot visible in the distal branches of the left upper lobe. He has a 0.8 cm right pleural effusion noted. Ascites in the upper abdomen measuring 3.6 cm at the liver margin and 3.5 cm at the anterior margin of the spleen. Patient ambulated well here in the emergency department no hypoxia no tachycardia and felt well overall. Patient's bilateral lower extremity duplex did not show any evidence of blood clots. Pulmonary Embolism Severity Index (PESI) from [place] on 09/21/2025 All calculations should be rechecked by clinician prior to use RESULT SUMMARY: 99 points Class III, Intermediate Risk: 3.2-7.1% 30-day mortality in this group. INPUTS: Age —> 89 years Sex —> 10 = Male History of cancer —> 0 = No History of heart failure —> 0 = No History of chronic lung disease —> 0 = No Heart rate >=10 —> 0 = No Systolic BP <100 mmHg —> 0 = No Respiratory rate >=0 —> 0 = No Temperature <36°C/96.8°F —> 0 = No Altered mental status (disorientation, lethargy, stupor, or coma) —> 0 = No O2 saturation <90% —> 0 = No I discussed the results with the patient and at bedside and I offered patient admission for further workup of his blood clots however he states that he wants to go home at this point in time and follow-up with his doctor on Saturday in the outpatient setting. I did discuss that he is at intermittent risk for 30-day mortality from these blood clots however I do feel that this is also a reasonable plan and therefore with shared decision making the patient will be discharged home with instructions to return with worsening symptoms or any concerns. Patient was given first dose of Eliquis here in the emergency department he will placed on Eliquis starter pack. He was educated on if he falls hit his head or is in any type of trauma or having any injury he should go to the emergency department immediately as he could have life-threatening bleeding from this. He verbalized understanding of this all course concerns answered he is discharged home in stable condition. Lab Data Labs: Laboratory Results - last 24 hr 09/21/25 09/21/25 12:05 14:19 WBC 9.2 RBC 3.38 L Hgb 11.1 L Hct 32.7 L MCV 96.7 H MCH 32.8 H MCHC 33.9 RDW Std Deviation 95.2 H RDW Coeff of Jamal 27.8 H Plt Count 294 MPV TNP Immature Gran % (Auto) 1.400 H Neut % (Auto) 72.3 H Lymph % (Auto) 14.8 L [place] % (Auto) 6.2 Eos % (Auto) 4.3 Baso % (Auto) 1.0 Absolute Neuts (auto) 6.7 Absolute Lymphs (auto) 1.37 Nucleated RBC % 0 Anisocytosis 1+ Sodium 139 Potassium 4.0 Chloride 105 Carbon Dioxide 24.6 Anion Gap 10 BUN 20 H Creatinine 0.89 Estim Creat Clear Calc 58.10 Est GFR (MDRD) Non-Af 82 BUN/Creatinine Ratio 22.4 H Glucose 190 H Calcium 9.1 Troponin T High Sens 46 H Troponin T Hi Sens 2 Hr 39 H NT pro BNP II 766 Discharge Plan Triage Chief Complaint: Shortness of Breath ED Provider: Primitivo Paz Dx/Rx/DC Orders Clinical Impression: Shortness of breath, Bilateral pulmonary embolism Prescriptions: New Eliquis DVT-PE Treat 30D Start 5 mg (74 tabs) tablets,dose pack See Rx Instructions .ROUTE .COMPLEX Qty: 74 0RF Rx Instructions: orally per package directions No Action calcium carbonate 500 MG tablet 500 mg PO BIDCM levothyroxine 125 MCG tablet 125 mcg PO DAILY cholecalciferol (vitamin D3) 2,000 UNIT tablet 1,000 unit PO DAILY Primary Care Provider: Jane Pino Referrals: Jane Pino, [employer] [Primary Care Provider, Family Practice] Activity Restrictions/Additional Instructions: Your ultrasound of your legs did not show any evidence of blood clots. 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 Follow-up with your doctor on Saturday. Take the Eliquis as prescribed you are already given a dose here in the emergency department prior to discharge. Return with worsening symptoms or any other concerns. If you fall hit your head or have any sort of trauma then you need to come to the emergency department as you could have life-threatening bleeding from the blood thinning medication that you will be prescribed. Avoid high risk activities. Print Language: Mexican Disposition Disposition: Home, Self Care D/C Safety Score for UGIB Assessment Eusebio-Blatchford Bleeding Score (GBS): Stratifies upper GI bleeding patients who are "low-risk" and candidates for outpatient management. Sex: Male Hemoglobin, BUN, Recent Vital Signs: Hgb 11.1 g/dL (13.0-16.5) L 09/21/25 12:05 BUN 20 mg/dL (4-19) H 09/21/25 12:05 Pulse Rate 65 Blood Pressure 120/61 Total Risk Score: 3 Score Interpretation: Score of 0: A GBS of 0 is a “Low Risk” GI bleed, and is highly sensitive (99.6% in a 2007 retrospective study) for predicting which patients did not require any “medical intervention”: blood transfusion, endoscopy, or surgery. This was confirmed in a 2009 [facility][Note 3] study where patients with a score of 0 were actually discharged and had no GI bleeding mortality at 6 month followup Score above 0: A GBS greater than zero suggests a “High Risk” GI bleed that is likely to require “medical intervention”: transfusion, endoscopy, or surgery. A higher GBS also correlated with a higher likelihood of needing intervention Scores >/= 6 are associated with >50% risk of needing intervention D/C Safety Score for LGIB Assessment Assessment Tool: Readmission and adverse event risk in patients with acute lower GI bleeding. Age, in years: >/= 70 Sex: Male Hemoglobin and Recent Vital Signs: Hgb 11.1 g/dL (13.0-16.5) L 09/21/25 12:05 Pulse Rate 65 09/21/25 15:21 Blood Pressure 120/61 09/21/25 15:21 Probability of safe discharge: 98% Total Risk Score: 3 Score Interpretation: Probability Percentage of safe discharge (absence of rebleeding, blood transfusion, therapeutic intervention, 28 day readmission, or ) Score of 8 or below: Consider discharge, with appropriate precautions. Score of 9 or above: Discharge NOT recommended. Consider admission with further workup and resuscitation as necessary.
[2025-09-21 12:29] LABS: Hematocrit 32.7 % (40-54); Hemoglobin 11.1 g/dL (13.0-16.5); Immature Granulocytes Count 0.130 X10^3/uL (0.0-0.0); Mean Corp Hgb Conc 33.9 g/dL (32-36); Mean Corpuscular Volume 96.7 fL (80-94); NRBC Flagged by Analyzer 0 % (0-5); POSITIVE MORPHOLOGY YES; Platelet Count 294 K/mm3 (150-450); RBC Distribution Width CV 27.8 % (11.6-14.6); RBC Distribution Width SD 95.2 fl (35.1-43.9); Red Blood Count 3.38 M/mm3 (4.6-6.2); White Blood Count 9.2 K/mm3 (4.4-11.0)
[2025-09-21 12:41] LABS: Differential Indicated SCAN CRITERIA MET
[2025-09-21 12:54] LABS: Anion Gap 10 (5-15); BUN 20 mg/dL (4-19); BUN/Creat Ratio 22.4 RATIO (10-20); Calcium,Total 9.1 mg/dL (7.6-11.0); Carbon Dioxide 24.6 mmol/L (21.0-32.0); Chloride 105 mmol/L (98-108); Estimated Creatinine Clearance 58.10 ml/min (50-250); Glucose 190 mg/dL (70-99); Potassium 4.0 mmol/L (3.3-5.1); Pro- Brain NATRIURETIC PEPTIDE 766 pg/mL (<=1800); Troponin T High Sensitivity 46 ng/L (<=22)
[2025-09-21 13:02] LABS: Anisocytosis 1+
[2025-09-21 14:54] LABS: Troponin T High Sens 2 HR 39 ng/L (<=22)
--- NOTE | 2025-09-21 15:28 | VDLE_ITS ---
Reason For Study Reason For Study: Pulmonary embolism RIGHT LEFT GSV is normal. GSV is normal. CFV is compressible, spontaneous, phasic, competent CFV is compressible, spontaneous, phasic, competent, and demonstrates normal augmentation. and demonstrates normal augmentation. FV is compressible, spontaneous, phasic, competent FV is compressible, spontaneous, phasic, competent and demonstrates normal augmentation. and demonstrates normal augmentation. POP V is compressible, spontaneous, phasic, competent POP V is compressible, spontaneous, phasic, competent and demonstrates normal augmentation. and demonstrates normal augmentation. T/P Trunk is compressible. T/P Trunk is compressible. PTV is compressible. PTV is compressible. RT PerV is compressible. LT PerV is compressible. Procedure This is a venous duplex using B-mode, color flow and spectral Doppler. Exam performed portable in ED. A preliminary report was called and/or faxed to Dr. Paz. VL/Venous Duplex US - Danielito Extrem Interpretation Summary Deep veins of the bilateral lower extremities are patent and compressible segme ntally. There is no evidence of bilateral lower extremity deep vein thrombosis. The bilateral great saphenous veins appea r patent and compressible segmentally. Ordering Physician: Primitivo Paz Referring Physician: Jane Pino Performed By: Shama Leonard RVT
[2025-09-21] MEDS: APIXABAN 5 MG TABLET 10 MG PO (16:29)
== END 2025-09-21 16:41 | disposition home or self-care (01) ==
PROVIDERS: Emergency Provider Emergency Medicine; PCP Nurse Practitioner Family; Visit Provider Emergency Medicine
DX: I26.99 Other pulmonary embolism without acute cor pulmonale (principal)
CPT/HCPCS: 80048; 83880; 84484; 85025; 93005; 93970; 99284; A4216

== ENCOUNTER → 2025-09-21 | Outpatient (CLI) | payer MEDICARE, OTHER, SELFPAY ==
--- NOTE | 2025-09-21 07:37 | CT_ITS ---
PROCEDURE: CTA CHEST W/WO CONTRAST 09/21/2025 REASON FOR EXAM: RULE OUT PE TECHNIQUE: Procedure Code: CTCTACHWW Modality: CT Procedure: CTA CHEST W/WO CONTRAST Multiplanar Sagittal and Coronal images were obtained. CONTRAST: 100 cc Isovue 370 One or more dose reduction techniques were used (e.g., Automated exposure control, adjustment of the mA and/or kV according to patient size, use of iterative reconstruction technique). RADIATION DOSE SUMMARY: DLP: 373 mGycm COMPARISON: None FINDINGS: Hardware: None Lymph nodes: There is no pathologic adenopathy by size criteria. Heart: Coronary artery calcifications are noted. RV/LV Diameter Ratio: 0.8 Thoracic Aorta: The ascending aorta is dilated to 4.1 cm in AP diameter. Pulmonary Vessels: Main pulmonary artery Hounsfield units = 300. There is clot visible within a right lower lobe branch vessel, image 81-85/221. There is clot visible within proximal and distal portions of the right upper lobe branches, image 98-110/221. There is partly occlusive clot visible in distal branches to the left upper lobe, image 132/221. Lungs and Airways: There are interstitial infiltrates versus fibrosis in the right and left lung base Pleura: There is a 0.8 cm right pleural effusion. Upper Abdomen: There is ascites in the upper abdomen measuring 3.6 cm at the liver margin and 3.5 cm at the anterior margin of the spleen. Bones: There is no acute bony abnormality. CT/CTA Chest W/WO Contrast IMPRESSION: The ascending aorta is dilated to 4.1 cm in AP diameter. There is clot visible within a right lower lobe branch vessel, image 81-85/221. There is clot visible within proximal and distal portions of the right upper lobe branches, image 98-110/221. There is partly occlusive clot visible in distal branches to the left upper lob e, image 132/221. There is a 0.8 cm right pleural effusion. There is ascites in the upper abdomen measuring 3.6 cm at the liver margin and 3.5 cm at the anterior margin of the spleen. Reading [facility]
--- OUTSIDE RECORDS SUMMARY | 2025-09-21 07:39 | XMS RPT_ITS | CCD ---
Author Organization [facility] Care Team Providers Care Production Painter Name Role Phone MAGI PRITCHARD (FRONT OFFICE SPECIALIST) Unavailable Unavailable Alvarez, Jane Referring Unavailable Alvarez, Jane Attending Unavailable Alvarez, Jane Primary Care Unavailable Alvarez, Jane Primary Care Unavailable Alvarez, Jane Referring Unavailable Alvarez, Jane Attending Unavailable Problems Problem Classification Problem Date Documented Da te Episodic/Chronic Other lower respiratory disease (2 sources) Shortness of breath; Translations: [Shortness of breath] Onset: 09-07-2025 Episodic Other screening for suspected conditions (not mental disorders or infectious disease) (1 source) Other specified abnormal findings of blood chemistry; Translations: [Other specified abnormal findings of blood chemistry] Onset: 09-14-2025 Episodic Results Test Name Value Interpretation Reference Range Facility CBC W/Diff, Automatedon 08-12 Anisocytosis Ql (Bld) 1+ Normal [facility] Comment on above: Performed By: #### L 300.8000, L500.4050, L503.7505, L100.0100 #### [facility] Laboratory [address] [place], [address] Chest PA and Lateralon 09-01 Chest PA and Lateral [facility] Imaging Services [address] [place] [address] Chest PA and Lateral MR#: [id number] Acct: [id number] Name: BANGSOBEIDANEKattLeigh AnnMARILY Yoni Rep #: [id number] : 1935 M 89 From: Ochoa Juan MD PCP: COLLEEN Royal Status: REG CLI Study: Chest PA and Lateral Date of Exam: 09/01/25 Exam# [id number] Ordering Dr: Jane Pino PROCEDURE: CHEST PA AND LATERAL 09/01/2025 REASON FOR EXAM: SOB TECHNIQUE: Procedure Code: RADCXR Modality: DX Procedure: CHEST PA AND LATERAL COMPARISON: None FINDINGS: There is cardiomegaly, pulmonary venous hypertension and pulmonary interstitial edema consistent with congestive heart failure. There are no significant pleural effusions. There is calcific vascular disease of the thoracic aorta. There is mild dextroscoliosis of the thoracolumbar spine. The upper abdominal bowel gas pattern is normal. RAD/Chest PA and Lateral IMPRESSION: Mild congestive heart failure. Reading Location: [place] [address] CC: COLLEEN Pino Desktop Architect: Signed Normal [facility] Comprehensive Metabolic Prof ilon 09-01-2025 Albumin [Mass/Vol] 4.1 g/dL Normal 3.4-4.8 [facility] Comment on above: Performed By: #### L 300.8000, L500.4050, L503.7505, L100.0100 #### [facility] Laboratory [address] [place], [address] Albumin/Globulin [Mass ratio] 1.5 {ratio} Normal 0.9-2.4 [facility] Comment on above: Performed By: #### L 300.8000, L500.4050, L503.7505, L100.0100 #### [facility] Laboratory [address] [place], [address] ALK PHOS 98 U/L Normal 40-129 [facility] Comment on above: Performed By: #### L 300.8000, L500.4050, L503.7505, L100.0100 #### [facility] Laboratory [address] [place], [address] ALT [Catalytic activity/Vol] 32 U/L Normal <=46 [facility] Comment on above: Performed By: #### L 300.8000, L500.4050, L503.7505, L100.0100 #### [facility] Laboratory [address] [place], [address] AST [Catalytic activity/Vol] 39 U/L High <=37 [facility] Comment on above: Performed By: #### L 300.8000, L500.4050, L503.7505, L100.0100 #### [facility] Laboratory [address] [place], [address] Bilirubin [Mass/Vol] 0.75 mg/dL Normal 0.00-1.30 [facility] Comment on above: Performed By: #### L 300.8000, L500.4050, L503.7505, L100.0100 #### [facility] Laboratory [address] [place], [address] BUN/CRE 19.4 RATIO Normal 10-20 [facility] Comment on above: Performed By: #### L 300.8000, L500.4050, L503.7505, L100.0100 #### [facility] [address] [place], [address] Calcium [Mass/Vol] 9.7 mg/dL Normal 7.6-11.0 [facility] Comment on above: Performed By: #### L 300.8000, L500.4050, L503.7505, L100.0100 #### [facility] [address] [place], [address] Chloride [Moles/Vol] 103 mmol/L Normal 98-108 [facility] Comment on above: Performed By: #### L 300.8000, L500.4050, L503.7505, L100.0100 #### [facility] Laboratory [address] [place], [address] CO2 [Moles/Vol] 25.0 mmol/L Normal 21.0-32.0 [facility] Comment on above: Performed By: #### L 300.8000, L500.4050, L503.7505, L100.0100 #### [facility] Laboratory [address] [place], [address] Creatinine [Mass/Vol] 0.89 mg/dL Normal 0.70-1.20 [facility] Comment on above: Performed By: #### L 300.8000, L500.4050, L503.7505, L100.0100 #### [facility] Laboratory [address] [place], [address] GAP 9 Normal 5-15 [facility] Comment on above: Performed By: #### L 300.8000, L500.4050, L503.7505, L100.0100 #### [facility] Laboratory [address] [place], [address] GFR/1.73 sq M.predicted among non-blacks MDRD (S/P/Bld) [Vol rate/Area] 82 mL/min/{1.73_m2} Normal >60 [facility] Comment on above: Result Comment: mL/m in/1.73m2 CKD-EPI Creatinine Equation (2020) Performed By: #### L 300.8000, L500.4050, L503.7505, L100.0100 #### [facility] [address] [place], [address] Globulin (S) [Mass/Vol] 2.7 g/dL Normal 2.2-4.2 [facility] Comment on above: Performed By: #### L 300.8000, L500.4050, L503.7505, L100.0100 #### [facility] [address] [place], [address] Glucose [Mass/Vol] 141 mg/dL High 70-99 [facility] Comment on above: Performed By: #### L 300.8000, L500.4050, L503.7505, L100.0100 #### [facility] [address] [place], [address] Potassium [Moles/Vol] 4.6 mmol/L Normal 3.3-5.1 [facility] Comment on above: Performed By: #### L 300.8000, L500.4050, L503.7505, L100.0100 #### [facility] [address] [place], [address] Sodium [Moles/Vol] 137 mmol/L Normal 133-145 [facility] Comment on above: Performed By: #### L 300.8000, L500.4050, L503.7505, L100.0100 #### [facility] [address] [place], [address] T PROT 6.8 g/dL Normal 5.9-8.4 [facility] Comment on above: Performed By: #### L 300.8000, L500.4050, L503.7505, L100.0100 #### [facility] [address] [place], [address] Urea nitrogen [Mass/Vol] 17 mg/dL Normal 4-19 [facility] Comment on above: Performed By: #### L 300.8000, L500.4050, L503.7505, L100.0100 #### [facility] [address] [place], [address] D-Dimer Quantitative (DVT/PE )on 09-01-2025 D-DIMER QUANT 0.80 FEU/ug/m Invalid Interpretation Code 0.27-0.49 [facility] Comment on above: Order Comment: LEFT MESSAGE TO RETURN CALL FOR CRITICAL RESULT. 1306 SL Result Comment: D-Di karen ELEVATED (>0.49): Additional studies and clinical assessments are indicated to conclude diagnosis of: Deep Vein Thrombosis (DVT) or Pulmonary Embolism (PE) CRITICAL VALUE CALLED TO [facility] 09/01/25 Soumya6 Trista Mendieta. RESULTS READ BACK BY SAME. Performed By: #### L 300.8000, L500.4050, L503.7505, L100.0100 #### [facility] Laboratory [address] [place], [address] Pro- Brain NATRIURETIC PEPTI Tuan 09-01-2025 Natriuretic peptide B (Bld) [Mass/Vol] 606 pg/mL Normal <=1800 [facility] Comment on above: Result Comment: Hear t Failure Unlikely: < 300 pg/mL Heart Failure Likely < 50 Years: > 450 pg/mL 50-75 Years: > 900 pg/mL >75 Years: > 1800 pg/mL Performed By: #### L 300.8000, L500.4050, L503.7505, L100.0100 #### [facility] Laboratory [address] [place], [place], [address] CNOVon 06-14-2017 CNOV Office Visit (UCTR) MARILY MOSES ([id number]) 1935 MDate Time Provider Department06/14/17 8:30 AM ISHA MORGAN (SHASHI) [facility] During your visit today, we recorded the following information about you: Temperature Pulse Respiration Blood pressure 98.2 degrees 76/minute 16/minute 128/66 Weight 80.4 kgIsha Morgan CNP 06/14/2017 9:35 AM SignedHPI Patient is a is a reliable 81 year old male with a 3 day history or leftear pain. States the pain is a ANDquot;jabbingANDquot; pain that has kept him uplast night. States he thinks it may be draining. States it feelsANDquot;pluggedAND quot;. {t states he wears hearing aids daily. Nothing makes itbetter or worse. No other concerns at this time.Review of SystemsConstitutional: Negative for chills, fever and malaise/fatigue.HENT: Positive for ear pain (left). Negative for congestion and sore throat.Respiratory: Positive for cough. Negative for sputum production, shortness ofbreath and wheezing.Cardiovascular : Negative.Gastrointestin al: Negative for nausea and vomiting.Musculoskeleta l: Negative for myalgias.Neurological: Negative for dizziness and headaches.Endo/Heme/All ergies: Negative for environmental allergies.PAST MEDICAL HISTORYDiagnosis Date- 1St degree AV block 12/25/13- BCC (basal cell carcinoma of skin)- Erectile dysfunction- Macrocytosis without anemia- Malignant neoplasm prostate (HCC)- Unspecified hypothyroidism- Urinary incontinencePAST SURGICAL HISTORYNo date: APPENDECTOMY08/10/08: COLONOSCOP W/ OR W/O BRS SPECNo date: CYSTOSCOPY12/29/13: HERNIA REPAIR HX Comment: Laparoscopic left11/2006: MOHS ANY STAGE EA ADD BLOCK Comment: BCC right lateral [id number]: PAST SURGICAL HISTORY OF Comment: suprapubic prostatectomy02/2011: PAST SURGICAL HISTORY OF Comment: right [id number]: PAST SURGICAL HISTORY OF Comment: left cataractALLERGIES Review of patient's allergies indicates no known allergies.MEDICATIONSMi scellaneous Medical Supply ([facility]) misc Dx: urinaryincontinence, prostate cancerlevothyroxine [...] 80.4 kg(177 lb 3.2 oz) BMI 25.43 kg/c3Wfrqtyjx ExamConstitutional: He is well-developed, well-nourished, and in no distress. Vitalsigns are normal.Mildly ill.HENT:Head: Normocephalic and atraumatic.Right Ear: Tympanic membrane, external ear and ear canal normal.Left Ear: Tympanic membrane normal.Nose: No mucosal edema or rhinorrhea. Right sinus exhibits no maxillary sinustenderness and no frontal sinus tenderness. Left sinus exhibits no maxillarysinus tenderness and no frontal sinus tenderness.Mouth/Throat : Uvula is midline, oropharynx is clear and [...] no tonsillaradenopathy present. He has no cervical adenopathy.Submandibula r fullness.Neurological: He is alert.Skin: Skin is warm and dry.Nursing note and vitals reviewed.ASSESSMENT/LISA N:1. Acute otitis externa of left ear, unspecified type - ICD9: 380.10, ICD10:H60.502- Will start ABX drops- Keep ear clean and dry- Tylenol or Ibuprofen for pain- Avoid hearing aide in the affected ear until infection is resolved- OKGJUPWR-LYCIZSBFM-LWUR OCORT 3.5 MG-10,000 UNIT/ML-1 % EAR DROPS,SUSPPrescription instructions [...] 06/14/2017(No Known Allergies)Date Reviewed: 06/14/2017Reviewed by: Isha Morgan - Fully AssessedReason for Visit: left ear pain [Other] Cmt: x 2 daysPrimary Visit Diagnosis:Acute otitis externa of left ear, unspecified type [H60.502]Order(s):neomy nro-nugjzxtie-bjbywvegm isone (CORTISPORIN) 3.5-10,000-1 mg/mL-unit/mL-% otic suspensionUse 4 Drops in the left ear four times daily for 7 days.Disp: 1 BottleRfl: 0Prescriptions as of 06/14/2017 Sig: MISCELLANEOUS MEDICAL SUPPLY * Dx: urinary incontinence, pro* LEVOTHYROXINE 75 MCG TABLET Take 1 tablet by mouth once d* * CALCIUM 500 MG TABLET Take one(1) tablet twice eliana* * CHOLECALCIFEROL (VITAMIN D3) * Take one(1) tablet two(2) anthony* BPLBXKRA-WQRGUEJYO-UTEK OCORT * Use 4 Drops in the left [...] INJURY-CLOSED [S37.10XA] INVALID FOR* POSTOP URETHRAL STRICTUR [[id number]] INVALID FOR* H/O BCC////MALIG NEOPLASM SKIN FACE [...] ordered this encounter Disp Refills Start End BBMOMJAD-EHNBQWHXC-HCNE OCORT 3.5 MG-* 1 John* 0 06/14/2017 06/21/2017 Route: LEFT EAR Sig: Use 4 Drops in the left ear four times daily for 7 days. Status:Closed by ISHA MORGAN CNP on 06/14/17 [facility] PROGRESSon 06-14-2017 PROGRESS HNO ID: [id number]: Isha Parish) Ernestineervice: (none)Author Type: Nurse PractitionerType: Progress NotesFiled: 06/14/2017 9:35 AMNote Text:HPI Patient is a is a reliable 81 year old male with a 3 day history orleft ear pain. States the pain is a jabbing pain that has kept him uplast night. States he thinks it may be draining. States it feelsplugged. {t states he wears hearing aids daily. Nothing makes it betteror worse. No other concerns at this time.Review of SystemsConstitutional: Negative for chills, fever and malaise/fatigue.HENT: Positive for ear pain (left). Negative for congestion and sorethroat.Respiratory: Positive for cough. Negative for sputum production, shortnessof breath and wheezing.Cardiovascular : Negative.Gastrointestin al: Negative for nausea and vomiting.Musculoskeleta l: Negative for myalgias.Neurological: Negative for dizziness and headaches.Endo/Heme/All ergies: Negative for environmental allergies.PAST MEDICAL HISTORYDiagnosis Date- 1St degree AV block 12/25/13- BCC (basal cell carcinoma of skin)- Erectile dysfunction- Macrocytosis without anemia- Malignant neoplasm prostate (HCC)- Unspecified hypothyroidism- Urinary incontinencePAST SURGICAL HISTORYNo date: APPENDECTOMY08/10/08: COLONOSCOP W/ OR W/O [facility] SPECNo date: CYSTOSCOPY12/29/13: HERNIA REPAIR HX Comment: Laparoscopic left11/2006: MOHS ANY STAGE EA ADD BLOCK Comment: BCC right lateral [id number]: PAST SURGICAL HISTORY OF Comment: suprapubic prostatectomy02/2011: PAST SURGICAL HISTORY OF Comment: right [id number]: PAST SURGICAL HISTORY OF Comment: left cataractALLERGIES Review of patient's allergies indicates no known allergies.MEDICATIONSMi scellaneous Medical Supply ([facility] [facility]x:urinary incontinence, prostate cancerlevothyroxine (SYNTHROID) 75 mcg [...] kg (177 lb 3.2 oz) BMI 25.43 kg/m6Pynheacn ExamConstitutional: He is well-developed, well-nourished, and in no distress.Vital signs are normal.Mildly ill.HENT:Head: Normocephalic and atraumatic.Right Ear: Tympanic membrane, external ear and ear canal normal.Left Ear: Tympanic membrane normal.Nose: No mucosal edema or rhinorrhea. Right sinus exhibits no maxillarysinus tenderness and no frontal sinus tenderness. Left sinus exhibits nomaxillary sinus tenderness and no frontal sinus tenderness.Mouth/Throat : Uvula is midline, oropharynx is clear and [...] no tonsillaradenopathy present. He has no cervical adenopathy.Submandibula r fullness.Neurological: He is alert.Skin: Skin is warm and dry.Nursing note and vitals reviewed.ASSESSMENT/LISA N:1. Acute otitis externa of left ear, unspecified type - ICD9: 380.10,ICD10: H60.502- Will start ABX drops- Keep ear clean and dry- Tylenol or Ibuprofen for pain- Avoid hearing aide in the affected ear until infection is resolved- PVQALBWK-AFXPRSTED-VJDP OCORT 3.5 MG-10,000 UNIT/ML-1 % EAR DROPS,SUSPPrescription instructions reviewed with patient as applicable. Patientadvised if symptoms do not improve in 2-3 days or if symptoms worsensooner, to contact their primary care physician. Potential red flagsymptoms discussed with the patient. Reviewed appropriate action plan totake if red flag symptoms occur. Patient agreeable to treatment plan.Isha Morgan CNP Normal [facility] Encounters Encounter Date Encounter Type Care Provider Facility Start: 09-21-2025 [facility] Facility:[facility] Start: 09-01-2025 End: 09-01-2025 ambulatory [facility] Facility:[facility] Start: 06-14-2017 End: 06-14-2017 Ambulatory MAGI (SHASHI) MACHO [facility] Payers Date Payer Category Payer Medicare [id number] 2025 Self-pay 2025 Unknown [id number] Unknown [id number] Unknown [id number] Summary Purpose Family History No Family History Records FoundNo Family History Records Found Advance Directives No Advanced Directives Records FoundNo Advanced Directives Records Found Additional Source Comments (unrecognized sect ion and content) No Status Records FoundNo Status Records Found INFORMATION SOURCE (unrecogn ized section and content) DATE CREATED AUTHOR 05/07/2018 [facility] DATE CREATED AUTHOR AUTHOR'S JOHN ATION 09/15/2025 [facility] FOR RECORDS PERTAINING TO PATIENTS WHO ARE [...] BE BASED ON THE PRIMARY CLINICAL RECORDS. [facility] [employer] [facility]. provides no warranty or guarantee of the accuracy or completeness of information in this document.
== END | disposition home or self-care (01) ==
LOC: CT 07:35
PROVIDERS: PCP Nurse Practitioner Family; Referring Provider Nurse Practitioner Family; Visit Provider Nurse Practitioner Family
DX: R06.02 Shortness of breath (principal); R79.89 Other specified abnormal findings of blood chemistry
CPT/HCPCS: 71275; Q9967

== ENCOUNTER → 2025-09-27 | Outpatient (CLI) | payer MEDICARE, OTHER, SELFPAY ==
[2025-09-27 15:20] LABS: PSA,Total - Annual Screen 1.03 ng/mL (0.02-4.00)
--- OUTSIDE RECORDS SUMMARY | 2025-09-27 17:04 | XMS RPT_ITS | CCD ---
Author Organization [facility] [employer] [facility] Care Team Providers Care Bookseamer Blindstitch Name Role Phone MAGI PRITCHARD (FUDGE CANDY MAKER) Unavailable Unavailable Alvarez, Jane Attending Unavailable Alvarez, Jane Primary Care Unavailable Alvarez, Jane Referring Unavailable Alvarez, Jane Primary Care Unavailable Primitivo Paz Attending Unavailable Alvarez, Jane Attending Unavailable Alvarez, Jane Primary Care Unavailable Alvarez, Jane Referring Unavailable Malcolm Edmonds Attending Unavailable Alvarez, Jane Primary Care Unavailable Problems Problem Classification Problem Date Documented Da te Episodic/Chronic Other lower respiratory disease (2 sources) Shortness of breath; Translations: [Shortness of breath] Onset: 09-07-2025 Episodic Other screening for suspected conditions (not mental disorders or infectious disease) (1 source) Other specified abnormal findings of blood chemistry; Translations: [Other specified abnormal findings of blood chemistry] Onset: 09-21-2025 Episodic Results Test Name Value Interpretation Reference Range Facility 12 Lead EKGon 09-21-2025 12 Lead EKG [facility] Cardiovascular Services [address] [place] [address] 12 Lead EKG 09/21/25 1147 MR#: [id number] Acct: [id number] Name: YANETHKattLeigh AnnMARILY Yoni Rep #: [id number] : 1935 89 From: Lance Monzon MD Attending Dr: Status: DEP ER Ordering Dr: Primitivo Paz DO Date: 09/21/25 Location: ED Sex: M C Admitted: Test Reason : SOB Blood Pressure : */* mmHG Vent. Rate : 76 BPM Atrial Rate : 76 BPM P-R Int : 210 ms QRS Dur : 136 ms QT Int : 426 ms P-R-T Axes : 47 -17 28 degrees QTcB Int : 479 ms Sinus rhythm with 1st degree A-V block Right bundle branch block Abnormal ECG Confirmed by Lance Monzon ([id number]), city editor JONNIE MOODY ([id number]) on 09/22/2025 10:34:10 AM Referred By: Confirmed By: Lance Monzon 09/22/25 1034 Date Lance Monzon MD CC: FISH EGG PACKERManoj Pino; Dr. Primitivo Paz, DO Signed Normal [facility] Basic Metabolic Profile (BMP )on 09-21-2025 BUN/CRE 22.4 RATIO High 10-20 [facility] Comment on above: Performed By: #### L 500.2500, L501.4021, L100.0100, L503.7505 ####[facility] [address] [place], [address] Calcium [Mass/Vol] 9.1 mg/dL Normal 7.6-11.[address] [facility] Comment on above: Performed By: #### L 500.2500, L501.4021, L100.0100, L503.7505 ####[facility] [address] [place], [address] Chloride [Moles/Vol] 105 mmol/L Normal 98-108 [facility] Comment on above: Performed By: #### L 500.2500, L501.4021, L100.0100, L503.7505 ####[facility] [address] [place], [address] CO2 [Moles/Vol] 24.6 mmol/L Normal 21.0-32.0 [facility] Comment on above: Performed By: #### L 500.2500, L501.4021, L100.0100, L503.7505 ####[facility] [address] [place], [address] Creatinine [Mass/Vol] 0.89 mg/dL Normal 0.70-1.20 [facility] Comment on above: Performed By: #### L 500.2500, L501.4021, L100.0100, L503.7505 ####[facility] [address] [place], [address] ECRCL 58.10 ml/min Normal 50-250 [facility] Comment on above: Performed By: #### L 500.2500, L501.4021, L100.0100, L503.7505 ####[facility] [address] [place], [address] GAP 10 Normal 5-15 [facility] Comment on above: Performed By: #### L 500.2500, L501.4021, L100.0100, L503.7505 ####[facility] [address] [place], [address] GFR/1.73 sq M.predicted among non-blacks MDRD (S/P/Bld) [Vol rate/Area] 82 mL/min/{1.73_m2} Normal >60 [facility] Comment on above: Result Comment: mL/m in/1.73m2 CKD-EPI Creatinine Equation (2020) Performed By: #### L 500.2500, L501.4021, L100.0100, L503.7505 ####[facility] [address] [place], [address] Glucose [Mass/Vol] 190 mg/dL High 70-[address] [facility] Comment on above: Performed By: #### L 500.2500, L501.4021, L100.0100, L503.7505 ####[facility] [address] [place], [address] Potassium [Moles/Vol] 4.0 mmol/L Normal 3.3-5.1 [facility] Comment on above: Performed By: #### L 500.2500, L501.4021, L100.0100, L503.7505 ####[facility] [address] [place], [address] Sodium [Moles/Vol] 139 mmol/L Normal 133-[address] [facility] Comment on above: Performed By: #### L 500.2500, L501.4021, L100.0100, L503.7505 ####[facility] [address] [place], [address] Urea nitrogen [Mass/Vol] 20 mg/dL High 4-19 [facility] Comment on above: Performed By: #### L 500.2500, L501.4021, L100.0100, L503.7505 ####[facility] [address] [place], [address] CBC W/Diff, Automatedon 09-11 Anisocytosis Ql (Bld) 1+ Normal [facility] Comment on above: Performed By: #### L 500.2500, L501.4021, L100.0100, L503.7505 ####[facility] [address] [place], [address] CTA Chest W/WO Contraston CTA Chest W/WO Contrast [facility] Imaging Services [address] [place] [address] CTA Chest W/WO Contrast MR#: [id number] Acct: [id number] Name: MARILY BONE Rep #: [id number] : 1935 M 89 From: Oscar Estrada MD PCP: COLLEEN Royal Status: REG CLI Study: CTA Chest W/WO Contrast Date of Exam: 09/21/25 Exam# [id number] Ordering Dr: Jane Pino PROCEDURE: CTA CHEST W/WO CONTRAST 09/21/2025 REASON FOR EXAM: RULE OUT PE TECHNIQUE: Procedure Code: CTCTACHWW Modality: CT Procedure: CTA CHEST W/WO CONTRAST Multiplanar Sagittal and Coronal images were obtained. CONTRAST: 100 cc Isovue 370 One or more dose reduction techniques were used (e.g., Automated exposure control, adjustment of the mA and/or kV according to patient size, use of iterative reconstruction technique). RADIATION DOSE SUMMARY: DLP: 373 mGycm COMPARISON: None FINDINGS: Hardware: None Lymph nodes: There is no pathologic adenopathy by size criteria. Heart: Coronary artery calcifications are noted. RV/LV Diameter Ratio: 0.8 Thoracic Aorta: The ascending aorta is dilated to 4.1 cm in AP diameter. Pulmonary Vessels: Main pulmonary artery Hounsfield units = 300. There is clot visible within a right lower lobe branch vessel, image 81-85/221. There is clot visible within proximal and distal portions of the right upper lobe branches, image 98-110/221. There is partly occlusive clot visible in distal branches to the left upper lobe, image 132/221. Lungs and Airways: There are interstitial infiltrates versus fibrosis in the right and left lung base Pleura: There is a 0.8 cm right pleural effusion. Upper Abdomen: There is ascites in the upper abdomen measuring 3.6 cm at the liver margin and 3.5 cm at the anterior margin of the spleen. Bones: There is no acute bony abnormality. CT/CTA Chest W/WO Contrast IMPRESSION: The ascending aorta is dilated to 4.1 cm in AP diameter. There is clot visible within a right lower lobe branch vessel, image 81-85/221. There is clot visible within proximal and distal portions of the right upper lobe branches, image 98-110/221. There is partly occlusive clot visible in distal branches to the left upper lobe, image 132/221. There is a 0.8 cm right pleural effusion. There is ascites in the upper abdomen measuring 3.6 cm at the liver margin and 3.5 cm at the anterior margin of the spleen. Reading Location: [facility] CC: COLLEEN Pino Bakeshop Cleaner: Signed Normal [facility] Emergency Department Summary on 09-21-2025 Emergency Department Summary [facility] Medical Records Department [address] [place] [address] Emergency Department Summary 09/21/25 MR#: [id number] Acct: [id number] Name: MARILY BONE Rep #: [id number] : 1935 89 From: Primitivo Paz DO PCP: LUCIE RoyalC Status:REG ER Location: ED HPI History of Present Illness Chief Complaint: Shortness of Breath Narrative Narrative: Patient is a 89-year-old male with a past medical history of of thyroid disease, prostate cancer, skin cancer who presented to the emergency department the chief complaint of shortness of breath and abnormal CT of his chest results. He states that his shortness of breath has been going on for a while however has been progressively worsening he states that last week he had blood work obtained by his primary care physician and a chest x-ray. He states that they then proceeded to order a CT of his chest today and by the time he was home there was a message on the answering machine and he was advised to come to the emergency department as there is concern for blood clots. He denies any history of blood clots denies any recent travel history. He states he has not had a colonoscopy in a significant mount time he states that has been many years and states that his stools have been irregular lately as well but denies any black stools denies any blood in the stool [facility] Medical History Incontinence unexplained bruises Thyroid disease History of prostate cancer History of skin cancer Home Medications ???Medication ???Instructions ???Recorded ???Last Taken ???Type calcium carbonate 500 mg PO BIDCM 12/25/13 Unknown H istory cholecalciferol (vitamin D3) 50 1,000 unit PO DAILY 12/25/13 Unkno wn History mcg (2,000 unit) tablet levothyroxine 125 mcg tablet 125 mcg PO DAILY 12/25/13 Unknown History apixaban 5 mg (74 tabs) tablets in See Rx Instructions PO .COMPLEX 09/21/25 Unknown Rx a dose pack (Eliquis DVT-PE Treat #74 tabs 30D Start) Allergy/AdvReac Type Severity Reaction Status Date / Time No Known Allergies Allergy Verified 09/21/25 11:18 Surgical History History of hernia surgery Social History Smoking Status: Never smoker ROS ROS ED ROS Narrative Constitutional: Denies any fevers, chills Cardiovascular: Complains of chest heaviness denies palpitations Respiratory: Complains of shortness of breath Abdomen: Denies abdominal pain nausea vomiting : Denies any urinary symptoms Neurological: Denies any numbness, some tingling Musculoskeletal: Denies back pain Skin: Denies any rashes or lesions EXAM Physical Exam Narrative Exam Narrative: General: Patient is lying in bed rest comfortably did not appear to be in acute distress Head: Atraumatic, normocephalic Eyes: PERRL bilaterally, EOMI bilaterally, no conjunctival injection noted Neck: Soft, supple, trachea midline Cardiovascular: Regular rate and rhythm Respiratory: Clear to auscultation bilaterally Abdomen: No tenderness to palpation, soft, nondistended Extremities: +4/5 strength noted in the bilateral lower extremities Neurological: Patient following commands knew that he was at [facility] the year is 2024 Skin: Warm, dry, tact no rashes or lesions noted Const Vital Signs: 09/21/25 11:17 09/21/25 12:02 09/21/25 12:30 Temperature 97.4 F L Temperature Source Oral Pulse Rate 98 67 Respiratory Rate 26 H 15 Respiratory Effort Normal Non-Labored Respiratory Depth Normal Respiratory Pattern Normal Blood Pressure 162/73 H 134/64 H Blood Pressure Mean 102 84 Pulse Ox 98 96 Oxygen Delivery Method Room Air 09/21/25 12:45 09/21/25 13:16 09/21/25 14:39 Temperature Temperature Source Pulse Rate 62 63 Respiratory Rate 20 H 18 Respiratory Effort Respiratory Depth Respiratory Pattern Blood Pressure 129/59 H 130/61 H Blood Pressure Mean 80 84 Pulse Ox 96 93 98 Oxygen Delivery Method Room Air Room Air 09/21/25 15:21 Temperature Temperature Source Pulse Rate 65 Respiratory Rate 18 Respiratory Effort Respiratory Depth Respiratory Pattern Blood Pressure 120/61 Blood Pressure Mean 80 Pulse Ox 100 Oxygen Delivery Method Room Air MDM MDM MDM Narrative Medical decision making narrative: Patient 89-year-old male who presents to the emergency department the chief complaint of dyspnea on exertion and findings of pulmonary emboli on his CT of the chest performed today. On the differential diagnose includes but not limited to pulmonary emboli, right heart strain, pleural effusion, CHF. Once workup is obtained review (more content not included)... Normal [facility] L501.4021on 09-21-2025 Trop T High Sen 46 ng/L High <=22 [facility] Comment on above: Performed By: #### L 500.2500, L501.4021, L100.0100, L503.7505 ####[facility] [address] [place], [address] Pro- Brain NATRIURETIC PEPTI Tuan 09-21-2025 Natriuretic peptide B (Bld) [Mass/Vol] 766 pg/mL Normal <=1800 [facility] Comment on above: Result Comment: Hear t Failure Unlikely: < 300 pg/mL Heart Failure Likely < 50 Years: > 450 pg/mL 50-75 Years: > 900 pg/mL >75 Years: > 1800 pg/mL Performed By: #### L 500.2500, L501.4021, L100.0100, L503.7505 ####[facility] [address] [place], [address] Troponin T HS 2 HRon 025 Trop T High Sen 39 ng/L High <=22 [facility] Comment on above: Performed By: #### L 499.0042 #### [facility] [address] [place], [address] Troponin T HS 4 HRon 025 Trop T High Sen Normal <=22 [facility] Comment on above: Result Comment: Sophia arguelles via OM: Ordered Performed By: #### L 499.0043 ####[facility] [address] [place], [address] Venous Duplex US - Adnielito [facility] 09-21-2025 Venous Duplex US - Danielito Extrem [facility] Cardiovascular Services [address] [place] [address] Venous Duplex US - Danielito Extrem 09/21/25 1546 MR#: [id number] Acct: [id number] Name: MARILY BONE Rep #: [id number] : 1935 89 From: Malcolm Edmonds MD Attending Dr: Status: DEP ER Ordering Dr: Primitivo Paz DO Date: 09/21/25 Location: ED Sex: M C Admitted: Reason For Study Reason For Study: Pulmonary embolism RIGHT LEFT GSV is normal. GSV is normal. CFV is compressible, spontaneous, phasic, competent CFV is compressible, spontaneous, phasic, competent, and demonstrates normal augmentation. and demonstrates normal augmentation. FV is compressible, spontaneous, phasic, competent FV is compressible, spontaneous, phasic, competent and demonstrates normal augmentation. and demonstrates normal augmentation. POP V is compressible, spontaneous, phasic, competent POP V is compressible, spontaneous, phasic, competent and demonstrates normal augmentation. and demonstrates normal augmentation. T/P Trunk is compressible. T/P Trunk is compressible. PTV is compressible. PTV is compressible. RT PerV is compressible. LT PerV is compressible. Procedure This is a venous duplex using B-mode, color flow and spectral Doppler. Exam performed portable in ED. A preliminary report was called and/or faxed to Dr. Paz. VL/Venous Duplex US - Danielito Extrem Interpretation Summary Deep veins of the bilateral lower extremities are patent and compressible segmentally. There is no evidence of bilateral lower extremity deep vein thrombosis. The bilateral great saphenous veins appear patent and compressible segmentally. Ordering Physician: Primitivo Paz Referring Physician: Jane Pino Performed By: Shama Leonard RVT 09/22/25 0808 Date Malcolm Edmonds MD CC: FISH EGG PACKER-C Jane Pino; Dr. Primitivo Paz, Date Dictated: 09/21/25 1546 Date Transcribed: 09/22/25 0808 Bakeshop Cleaner: Signed Normal [facility] CBC W/Diff, Automatedon -2 Anisocytosis Ql (Bld) 1+ Normal [facility] Comment on above: Performed By: #### L 100.0100, L300.8000, L500.4050, L503.7505 #### [facility] [address] [place], [address] Chest PA and Lateralon 09-01 Chest PA and Lateral [facility] Imaging Services [address] [place] [address] Chest PA and Lateral MR#: [id number] Acct: [id number] Name: MARILY BONE Rep #: [id number] : 1935 M 89 From: Ochoa Juan MD PCP: COLLEEN Royal Status: REG CLI Study: Chest PA and Lateral Date of Exam: 09/01/25 Exam# [id number] Ordering Dr: Jane Pino PROCEDURE: CHEST PA [...] IMPRESSION: Mild congestive heart failure. Reading Location: [place] [address] CC: FISH EGG PACKER-Andreina Pino Bakeshop Cleaner: Signed Normal [facility] Comprehensive Metabolic Prof ilon 09-01-2025 Albumin [Mass/Vol] 4.1 g/dL Normal 3.4-4.[address] [facility] Comment on above: Performed By: #### L 100.0100, L300.8000, L500.4050, L503.7505 #### [facility] [address] [place], [address] Albumin/Globulin [Mass ratio] 1.5 {ratio} Normal 0.9-2.4 [facility] Comment on above: Performed By: #### L 100.0100, L300.8000, L500.4050, L503.7505 #### [facility] [address] [place], [address] ALK PHOS 98 U/L Normal 40-129 [facility] Comment on above: Performed By: #### L 100.0100, L300.8000, L500.4050, L503.7505 #### [facility] [address] [place], [address] ALT [Catalytic activity/Vol] 32 U/L Normal <=46 [facility] Comment on above: Performed By: #### L 100.0100, L300.8000, L500.4050, L503.7505 #### [facility] [address] [place], [address] AST [Catalytic activity/Vol] 39 U/L High <=37 [facility] Comment on above: Performed By: #### L 100.0100, L300.8000, L500.4050, L503.7505 #### [facility] [address] [place], [address] Bilirubin [Mass/Vol] 0.75 mg/dL Normal 0.00-1.30 [facility] Comment on above: Performed By: #### L 100.0100, L300.8000, L500.4050, L503.7505 #### [facility] [address] [place], [address] BUN/CRE 19.4 RATIO Normal 10-20 [facility] Comment on above: Performed By: #### L 100.0100, L300.8000, L500.4050, L503.7505 #### [facility] [address] [place], [address] Calcium [Mass/Vol] 9.7 mg/dL Normal 7.6-11.[address] [facility] Comment on above: Performed By: #### L 100.0100, L300.8000, L500.4050, L503.7505 #### [facility] [address] [place], [address] Chloride [Moles/Vol] 103 mmol/L Normal 98-108 [facility] Comment on above: Performed By: #### L 100.0100, L300.8000, L500.4050, L503.7505 #### [facility] [address] [place], [address] CO2 [Moles/Vol] 25.0 mmol/L Normal 21.0-32.0 [facility] Comment on above: Performed By: #### L 100.0100, L300.8000, L500.4050, L503.7505 #### [facility] [address] [place], [address] Creatinine [Mass/Vol] 0.89 mg/dL Normal 0.70-1.20 [facility] Comment on above: Performed By: #### L 100.0100, L300.8000, L500.4050, L503.7505 #### [facility] [address] [place], [address] GAP 9 Normal 5-15 [facility] Comment on above: Performed By: #### L 100.0100, L300.8000, L500.4050, L503.7505 #### [facility] [address] [place], [address] GFR/1.73 sq M.predicted among non-blacks MDRD (S/P/Bld) [Vol rate/Area] 82 mL/min/{1.73_m2} Normal >60 [facility] Comment on above: Result Comment: mL/m in/1.73m2 CKD-EPI Creatinine Equation (2021) Performed By: #### L 100.0100, L300.8000, L500.4050, L503.7505 #### [facility] [address] [place], [address] Globulin (S) [Mass/Vol] 2.7 g/dL Normal 2.2-4.2 [facility] Comment on above: Performed By: #### L 100.0100, L300.8000, L500.4050, L503.7505 #### [facility] [address] [place], [address] Glucose [Mass/Vol] 141 mg/dL High 70-[address] [facility] Comment on above: Performed By: #### L 100.0100, L300.8000, L500.4050, L503.7505 #### [facility] [address] [place], [address] Potassium [Moles/Vol] 4.6 mmol/L Normal 3.3-5.1 [facility] Comment on above: Performed By: #### L 100.0100, L300.8000, L500.4050, L503.7505 #### [facility] [address] [place], [address] Sodium [Moles/Vol] 137 mmol/L Normal 133-[address] [facility] Comment on above: Performed By: #### L 100.0100, L300.8000, L500.4050, L503.7505 #### [facility] [address] [place], [address] T PROT 6.8 g/dL Normal 5.9-8.4 [facility] Comment on above: Performed By: #### L 100.0100, L300.8000, L500.4050, L503.7505 #### [facility] [address] [place], [address] Urea nitrogen [Mass/Vol] 17 mg/dL Normal 4-19 [facility] Comment on above: Performed By: #### L 100.0100, L300.8000, L500.4050, L503.7505 #### [facility] [address] [place], [place], [address] D-Dimer Quantitative (DVT/PE )on 09-01-2025 D-DIMER QUANT 0.80 FEU/ug/m Invalid Interpretation Code 0.27-0.49 [facility] Comment on above: Order Comment: LEFT MESSAGE TO RETURN CALL FOR CRITICAL RESULT. 1306 SL Result Comment: D-Di karen ELEVATED (>0.49): Additional studies and clinical assessments are indicated to conclude diagnosis of: Deep Vein Thrombosis (DVT) or Pulmonary Embolism (PE) CRITICAL VALUE CALLED TO [facility] 09/01/25 1436 Trista Mendieta. RESULTS READ BACK BY SAME. Performed By: #### L 100.0100, L300.8000, L500.4050, L503.7505 #### [facility] [address] [place], [place], [address] Pro- Brain NATRIURETIC PEPTI Tuan 09-01-2025 Natriuretic peptide B (Bld) [Mass/Vol] 606 pg/mL Normal <=1800 [facility] Comment on above: Result Comment: Hear t Failure Unlikely: < 300 pg/mL Heart Failure Likely < 50 Years: > 450 pg/mL 50-75 Years: > 900 pg/mL >75 Years: > 1800 pg/mL Performed By: #### L 100.0100, L300.8000, L500.4050, L503.7505 #### [facility] [address] [place], [place], [address] CNOVon 06-14-2017 CNOV Office Visit (UCWSTR) MARILY MOSES ([id number]) 1935 MDate Time Provider Department06/14/17 8:30 AM [...] HISTORYNo date: APPENDECTOMY08/10/08: COLONOSCOP W/ OR W/O [facility] SPECNo date: CYSTOSCOPY12/29/13: HERNIA REPAIR HX Comment: Laparoscopic left11/2006: MOHS ANY STAGE EA ADD BLOCK Comment: BCC right lateral [id number]: PAST SURGICAL HISTORY OF Comment: suprapubic prostatectomy02/2011: PAST SURGICAL HISTORY OF Comment: right [id number]: PAST SURGICAL HISTORY OF Comment: left cataractALLERGIES Review of patient's allergies indicates no known allergies.MEDICATIONSMi scellaneous Medical Supply ([facility]) misc [...] 80.4 kg(177 lb 3.2 oz) BMI 25.43 kg/c1Nvetubem ExamConstitutional: He is well-developed, well-nourished, and in [...] the affected ear until infection is resolved- CTJLSMLX-MOPGRKCRB-IKGF OCORT 3.5 MG-10,000 UNIT/ML-1 % EAR DROPS,SUSPPrescription [...] externa of left ear, unspecified type [H60.502]Order(s):neomy ynx-fzcqzlylz-fkelcaboh isone (CORTISPORIN) 3.5-10,000-1 mg/mL-unit/mL-% otic suspensionUse 4 [...] D3) * Take one(1) tablet two(2) anthony* QJSRQYKG-MIHEKGNLG-QWPC OCORT * Use 4 Drops in the [...] INJURY-CLOSED [S37.10XA] INVALID FOR* POSTOP URETHRAL STRICTUR [[id number]] INVALID FOR* H/O BCC////MALIG NEOPLASM SKIN FACE [...] ordered this encounter Disp Refills Start End ZJXOGVLF-WXTEITTRW-EUBQ OCORT 3.5 MG-* 1 John* 0 06/14/2017 06/21/2017 Route: LEFT EAR Sig: Use 4 Drops in the left ear four times daily for 7 days. Status:Closed by ISHA MORGAN CNP on 06/14/17 [facility] PROGRESSon 06-14-2017 PROGRESS HNO ID: [id number]: [place]) Ernestineervice: (none)Author Type: Nurse PractitionerType: [...] HISTORYNo date: APPENDECTOMY08/10/08: COLONOSCOP W/ OR W/O [facility] SPECNo date: CYSTOSCOPY12/29/13: HERNIA REPAIR HX Comment: Laparoscopic left11/2006: MOHS ANY STAGE EA ADD BLOCK Comment: BCC right lateral [id number]: PAST SURGICAL HISTORY OF Comment: suprapubic prostatectomy02/2011: PAST SURGICAL HISTORY OF Comment: right [id number]: PAST SURGICAL HISTORY OF Comment: left cataractALLERGIES Review of patient's allergies indicates no known allergies.MEDICATIONSMi scellaneous Medical Supply ([facility]) [facility] [place] Dx:urinary incontinence, prostate cancerlevothyroxine (SYNTHROID) 75 mcg [...] kg (177 lb 3.2 oz) BMI 25.43 kg/v0Pqhqmahb ExamConstitutional: He is well-developed, well-nourished, and in [...] the affected ear until infection is resolved- DXOKUFMB-ADYNHCLSJ-DIOQ OCORT 3.5 MG-10,000 UNIT/ML-1 % EAR DROPS,SUSPPrescription instructions reviewed with patient as applicable. Patientadvised if symptoms do not improve in 2-3 days or if symptoms worsensooner, to contact their primary care physician. Potential red flagsymptoms discussed with the patient. Reviewed appropriate action plan totake if red flag symptoms occur. Patient agreeable to treatment plan.Isha Morgan CNP Normal [facility] Encounters Encounter Date Encounter Type Care Provider Facility Start: 09-21-2025 ambulatory Malcolm [place] Facility:[facility] Start: 09-21-2025 End: 09-21-2025 Emergency department patient visit Jane Pino Facility:[facility] Start: 09-21-2025 ambulatory Janeherrera Pino Facility:[facility] Start: 09-01-2025 End: 09-01-2025 ambulatory Janeherrera Pino Facility:[facility] Start: 06-14-2017 End: 06-14-2017 Ambulatory MAGI (FUDGE CANDY MAKER) MACHO [facility] Payers Date Payer Category Payer Medicare [id number] 2025 Self-pay 2025 Unknown [id number] Unknown [id number] 2.16.8 [id number] Unknown [id number] 2.16.8 [id number] Unknown [id number] 2.16.8 [id number] Unknown [id number] 2.16.8 [id number] Summary Purpose Family History No Family History Records FoundNo Family History Records Found Advance Directives No Advanced Directives Records FoundNo Advanced Directives Records Found Additional Source Comments (unrecognized sect ion and content) No Status Records FoundNo Status Records Found INFORMATION SOURCE (unrecogn ized section and content) DATE CREATED AUTHOR 05/07/2018 [facility] DATE CREATED AUTHOR AUTHOR'S ORGANIZ ATION 09/23/2025 [facility] FOR RECORDS PERTAINING TO PATIENTS WHO ARE [...] BE BASED ON THE PRIMARY CLINICAL RECORDS. [employer] provides no warranty or guarantee of the accuracy or completeness of information in this document.
== END | disposition home or self-care (01) ==
LOC: LAB 14:13
PROVIDERS: PCP Nurse Practitioner Family; Referring Provider Nurse Practitioner Family; Visit Provider Nurse Practitioner Family
DX: Z12.5 Encounter for screening for malignant neoplasm of prostate (principal)
CPT/HCPCS: 36415; 84153; G0103

== ENCOUNTER → 2025-10-01 | Outpatient (CLI) | payer MEDICARE, OTHER, SELFPAY ==
--- NOTE | 2025-10-01 06:14 | CT_ITS ---
PROCEDURE: ABDOMEN/PELVIS WITH CONTRAST 10/01/2025 REASON FOR EXAM: ASSESS CAUSE OF ASCITES TECHNIQUE: Procedure Code: CTABDPELW Modality: CT Procedure: ABDOMEN/PELVIS WITH CONTRAST Coronal and Sagittal reconstruction series were provided. CONTRAST: Isovue 370 VOLUME: 97 mL One or more dose reduction techniques were used (e.g., Automated exposure control, adjustment of the mA and/or kV according to patient size, use of iterative reconstruction technique. RADIATION DOSE SUMMARY: CTDlvol: 26 mGy DLP: 1126 mGycm FINDINGS: Normal lumbar vertebral body height and alignment. No masses are seen at the lung bases. Significant ascites is present. The liver is not significantly nodular. No hepatic masses are seen. The spleen is mildly prominent. No pancreatic parenchymal mass lesion. No definite peritoneal thickening. There is GI contrast in the small bowel without obstruction. There is no retroperitoneal adenopathy. There is questionable bowel wall thickening involving the right colon but this could be mimicked by the adjacent fluid. Irregular appearance to the gallbladder which appears moderately contracted. No calcified stones. The portal vein is not definitively patent and may have undergone cavernous transformation. I do not have delayed images. CT/Abdomen/Pelvis WITH Contrast IMPRESSION: Probable liver disease with ascites and splenic prominence. 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 I do not have th e benefit of prior studies. Reading [facility]
--- OUTSIDE RECORDS SUMMARY | 2025-10-01 06:15 | XMS RPT_ITS | CCD ---
Author Organization [facility] Care Team Providers Care Nutrition Intern Name Role Phone MAGI PRITCHARD (CAMELID FIBER SORTER) Unavailable Unavailable Alvarez, Jane Attending Unavailable Alvarez, [...] 12 Lead EKGon 09-21-2025 12 Lead EKG [facility] Cardiovascular Services [address] [place] [address] 12 Lead EKG 09/21/25 1147 MR#: [id number] Acct: [id number] Name: YANETHKattLeigh AnnMARILY Yoni Rep #: [id number] : 1935 89 From: Lance Monzon MD [...] block Abnormal ECG Confirmed by Lance Monzon ([id number]), editor managing newspaper JONNIE MOODY ([id number]) on 09/22/2025 10:34:10 AM Referred By: Confirmed By: Lance Monzon 09/22/25 1034 Date Lance Monzon MD CC: PULP BEATERManoj Pino; Dr. Primitivo Paz, DO Signed Normal [facility] Basic Metabolic Profile (BMP )on 09-21-2025 BUN/CRE 22.4 RATIO High 10-20 [facility] Comment on above: Performed By: #### L 500.2500, L501.4021, L100.0100, L503.7505 ####[facility] [address] [place], [address] Calcium [Mass/Vol] 9.1 mg/dL Normal 7.6-11.0 [facility] Comment on above: Performed By: #### L 500.2500, L501.4021, L100.0100, L503.7505 ####[facility] [address] [place], [address] Chloride [Moles/Vol] 105 mmol/L Normal 98-108 [facility] Comment on above: Performed By: #### L 500.2500, L501.4021, L100.0100, L503.7505 ####[facility] [address] [place], [address] CO2 [Moles/Vol] 24.6 mmol/L Normal 21.0-32.0 [facility] Comment on above: Performed By: #### L 500.2500, L501.4021, L100.0100, L503.7505 ####[facility] [address] [place], [address] Creatinine [Mass/Vol] 0.89 mg/dL Normal 0.70-1.20 [facility] Comment on above: Performed By: #### L 500.2500, L501.4021, L100.0100, L503.7505 ####[facility] [address] [place], [address] ECRCL 58.10 ml/min Normal 50-250 [facility] Comment on above: Performed By: #### L 500.2500, L501.4021, L100.0100, L503.7505 ####[facility] [address] [place], [address] GAP 10 Normal 5-15 [facility] Comment on above: Performed By: #### L 500.2500, L501.4021, L100.0100, L503.7505 ####[facility] [address] [place], [address] GFR/1.73 sq M.predicted among non-blacks MDRD (S/P/Bld) [Vol rate/Area] 82 mL/min/{1.73_m2} Normal >60 [facility] Comment on above: Result Comment: mL/m in/1.73m2 CKD-EPI Creatinine Equation (2020) Performed By: #### L 500.2500, L501.4021, L100.0100, L503.7505 ####[facility] [address] [place], [address] Glucose [Mass/Vol] 190 mg/dL High 70-99 [facility] Comment on above: Performed By: #### L 500.2500, L501.4021, L100.0100, L503.7505 ####[facility] [address] [place], [address] Potassium [Moles/Vol] 4.0 mmol/L Normal 3.3-5.1 [facility] Comment on above: Performed By: #### L 500.2500, L501.4021, L100.0100, L503.7505 ####[facility] [address] [place], [address] Sodium [Moles/Vol] 139 mmol/L Normal 133-145 [facility] Comment on above: Performed By: #### L 500.2500, L501.4021, L100.0100, L503.7505 ####[facility] [address] [place], [address] Urea nitrogen [Mass/Vol] 20 mg/dL High 4-19 [facility] Comment on above: Performed By: #### L 500.2500, L501.4021, L100.0100, L503.7505 ####[facility] [address] [place], [address] CBC W/Diff, Automatedon 09-11 Anisocytosis Ql (Bld) 1+ Normal [facility] Comment on above: Performed By: #### L 500.2500, L501.4021, L100.0100, L503.7505 ####[facility] [address] [place], [address] CTA Chest W/WO Contraston CTA Chest W/WO Contrast [facility] Imaging Services [address] [place] [address] CTA Chest W/WO Contrast MR#: [id number] Acct: [id number] Name: MARILY BONE Rep #: [id number] : 1935 M 89 From: Oscar Estrada MD PCP: COLLEEN Royal Status: REG CLI Study: CTA Chest W/WO Contrast Date of Exam: 09/21/25 Exam# [id number] Ordering Dr: Jane Pino PROCEDURE: CTA CHEST [...] spleen. Reading Location: [facility] CC: COLLEEN Pino Stenotype Machine Operator: Signed Normal [facility] Emergency Department Summary on 09-21-2025 Emergency Department Summary [facility] Medical Records Department [address] [place] [address] Emergency Department Summary 09/21/25 MR#: [id number] Acct: [id number] Name: MARILY BONE Rep #: [id number] : 1935 89 From: Primitivo Paz DO [...] stools denies any blood in the stool [facility] Medical History Incontinence unexplained bruises Thyroid disease [...] following commands knew that he was at [facility] the year is 2024 Skin: Warm, dry, [...] obtained review (more content not included)... Normal [facility] L501.4021on 09-21-2025 Trop T High Sen 46 ng/L High <=22 [facility] Comment on above: Performed By: #### L 500.2500, L501.4021, L100.0100, L503.7505 ####[facility] [address] [place], [address] Pro- Brain NATRIURETIC PEPTI Tuan 09-21-2025 Natriuretic peptide B (Bld) [Mass/Vol] 766 pg/mL Normal <=1800 [facility] Comment on above: Result Comment: Hear t Failure Unlikely: < 300 pg/mL Heart Failure Likely < 50 Years: > 450 pg/mL 50-75 Years: > 900 pg/mL >75 Years: > 1800 pg/mL Performed By: #### L 500.2500, L501.4021, L100.0100, L503.7505 ####[facility] [address] [place], [address] Troponin T HS 2 HRon 025 Trop T High Sen 39 ng/L High <=22 [facility] Comment on above: Performed By: #### L 499.0042 #### [facility] Laboratory [address] [place], [address] Troponin T HS 4 HRon 025 Trop T High Sen Normal <=22 [facility] Comment on above: Result Comment: Sophia arguelles via OM: Ordered Performed By: #### L 499.0043 ####[facility] [address] [place], [address] Venous Duplex US - Dnaielito [facility] 09-21-2025 Venous Duplex US - Danielito Extrem [facility] Cardiovascular Services [address] [place] [address] Venous Duplex US - Danielito Extrem 09/21/25 1546 MR#: [id number] Acct: [id number] Name: MARILY BONE Rep #: [id number] : 1935 89 From: Malcolm Edmonds MD [...] 09/22/25 0808 Date Malcolm Edmonds MD CC: PULP BEATER-C Jane Pino; Dr. Primitivo Paz, Date Dictated: 09/21/25 1546 Date Transcribed: 09/22/25 0808 Stenotype Machine Operator: Signed Normal [facility] CBC W/Diff, Automatedon -2 Anisocytosis Ql (Bld) 1+ Normal [facility] Comment on above: Performed By: #### L 100.0100, L300.8000, L500.4050, L503.7505 #### [facility] Laboratory [address] [place], [address] Chest PA and Lateralon 09-01 Chest PA and Lateral [facility] Imaging Services [address] [place] [address] Chest PA and Lateral MR#: [id number] Acct: [id number] Name: MARILY BONE Rep #: [id number] : 1935 M 89 From: Ochoa Juan MD PCP: COLLEEN Royal Status: REG CLI Study: Chest PA and Lateral Date of Exam: 09/01/25 Exam# [id number] Ordering Dr: Jane Pino PROCEDURE: CHEST PA [...] IMPRESSION: Mild congestive heart failure. Reading Location: [place] [address] CC: PULP BEATER-Andreina Pino Stenotype Machine Operator: Signed Normal [facility] Comprehensive Metabolic Prof ilon 09-01-2025 Albumin [Mass/Vol] 4.1 g/dL Normal 3.4-4.8 [facility] Comment on above: Performed By: #### L 100.0100, L300.8000, L500.4050, L503.7505 #### [facility] Laboratory [address] [place], [address] Albumin/Globulin [Mass ratio] 1.5 {ratio} Normal 0.9-2.4 [facility] Comment on above: Performed By: #### L 100.0100, L300.8000, L500.4050, L503.7505 #### [facility] Laboratory [address] [place], [address] ALK PHOS 98 U/L Normal 40-129 [facility] Comment on above: Performed By: #### L 100.0100, L300.8000, L500.4050, L503.7505 #### [facility] [address] [place], [address] ALT [Catalytic activity/Vol] 32 U/L Normal <=46 [facility] Comment on above: Performed By: #### L 100.0100, L300.8000, L500.4050, L503.7505 #### [facility] [address] [place], [address] AST [Catalytic activity/Vol] 39 U/L High <=37 [facility] Comment on above: Performed By: #### L 100.0100, L300.8000, L500.4050, L503.7505 #### [facility] [address] [place], [address] Bilirubin [Mass/Vol] 0.75 mg/dL Normal 0.00-1.30 [facility] Comment on above: Performed By: #### L 100.0100, L300.8000, L500.4050, L503.7505 #### [facility] [address] [place], [address] BUN/CRE 19.4 RATIO Normal 10-20 [facility] Comment on above: Performed By: #### L 100.0100, L300.8000, L500.4050, L503.7505 #### [facility] [address] [place], [address] Calcium [Mass/Vol] 9.7 mg/dL Normal 7.6-11.0 [facility] Comment on above: Performed By: #### L 100.0100, L300.8000, L500.4050, L503.7505 #### [facility] [address] [place], [address] Chloride [Moles/Vol] 103 mmol/L Normal 98-108 [facility] Comment on above: Performed By: #### L 100.0100, L300.8000, L500.4050, L503.7505 #### [facility] [address] [place], [address] CO2 [Moles/Vol] 25.0 mmol/L Normal 21.0-32.0 [facility] Comment on above: Performed By: #### L 100.0100, L300.8000, L500.4050, L503.7505 #### [facility] [address] [place], [address] Creatinine [Mass/Vol] 0.89 mg/dL Normal 0.70-1.20 [facility] Comment on above: Performed By: #### L 100.0100, L300.8000, L500.4050, L503.7505 #### [facility] [address] [place], [address] GAP 9 Normal 5-15 [facility] Comment on above: Performed By: #### L 100.0100, L300.8000, L500.4050, L503.7505 #### [facility] [address] [place], [address] GFR/1.73 sq M.predicted among non-blacks MDRD (S/P/Bld) [Vol rate/Area] 82 mL/min/{1.73_m2} Normal >60 [facility] Comment on above: Result Comment: mL/m in/1.73m2 CKD-EPI Creatinine Equation (2021) Performed By: #### L 100.0100, L300.8000, L500.4050, L503.7505 #### [facility] [address] [place], [address] Globulin (S) [Mass/Vol] 2.7 g/dL Normal 2.2-4.2 [facility] Comment on above: Performed By: #### L 100.0100, L300.8000, L500.4050, L503.7505 #### [facility] [address] [place], [address] Glucose [Mass/Vol] 141 mg/dL High 70-99 [facility] Comment on above: Performed By: #### L 100.0100, L300.8000, L500.4050, L503.7505 #### [facility] [address] [place], [address] Potassium [Moles/Vol] 4.6 mmol/L Normal 3.3-5.1 [facility] Comment on above: Performed By: #### L 100.0100, L300.8000, L500.4050, L503.7505 #### [facility] [address] [place], [address] Sodium [Moles/Vol] 137 mmol/L Normal 133-145 [facility] Comment on above: Performed By: #### L 100.0100, L300.8000, L500.4050, L503.7505 #### [facility] [address] [place], [address] T PROT 6.8 g/dL Normal 5.9-8.4 [facility] Comment on above: Performed By: #### L 100.0100, L300.8000, L500.4050, L503.7505 #### [facility] [address] [place], [address] Urea nitrogen [Mass/Vol] 17 mg/dL Normal 4-19 [facility] Comment on above: Performed By: #### L 100.0100, L300.8000, L500.4050, L503.7505 #### [facility] [address] [place], [place], [address] D-Dimer Quantitative (DVT/PE )on 09-01-2025 D-DIMER QUANT 0.80 FEU/ug/m Invalid Interpretation Code 0.27-0.49 [facility] Comment on above: Order Comment: LEFT MESSAGE TO RETURN CALL FOR CRITICAL RESULT. 1306 SL Result Comment: D-Di karen ELEVATED (>0.49): Additional studies and clinical assessments are indicated to conclude diagnosis of: Deep Vein Thrombosis (DVT) or Pulmonary Embolism (PE) CRITICAL VALUE CALLED TO [facility] 09/01/25 1436 Trista Mendieta. RESULTS READ BACK BY SAME. Performed By: #### L 100.0100, L300.8000, L500.4050, L503.7505 #### [facility] Laboratory [address] [place], [place], [address] Pro- Brain NATRIURETIC PEPTI Tuan 09-01-2025 Natriuretic peptide B (Bld) [Mass/Vol] 606 pg/mL Normal <=1800 [facility] Comment on above: Result Comment: Hear t Failure Unlikely: < 300 pg/mL Heart Failure Likely < 50 Years: > 450 pg/mL 50-75 Years: > 900 pg/mL >75 Years: > 1800 pg/mL Performed By: #### L 100.0100, L300.8000, L500.4050, L503.7505 #### [facility] [address] [place], [place], [address] CNOVon 06-14-2017 CNOV Office Visit (UCWSTR) MARILY MOSES ([id number]) 1935 MDate Time Provider Department06/14/17 8:30 AM [...] HISTORYNo date: APPENDECTOMY08/10/08: COLONOSCOP W/ OR W/O [facility] SPECNo date: CYSTOSCOPY12/29/13: HERNIA REPAIR HX Comment: Laparoscopic left11/2006: MOHS ANY STAGE EA ADD BLOCK Comment: BCC right lateral [id number]: PAST SURGICAL HISTORY OF Comment: suprapubic prostatectomy02/2011: PAST SURGICAL HISTORY OF Comment: right [id number]: PAST SURGICAL HISTORY OF Comment: left cataractALLERGIES [...] 80.4 kg(177 lb 3.2 oz) BMI 25.43 kg/l5Exzkekge ExamConstitutional: He is well-developed, well-nourished, and in [...] the affected ear until infection is resolved- OYBVMOOW-LNJHOSTKO-ZLCG OCORT 3.5 MG-10,000 UNIT/ML-1 % EAR DROPS,SUSPPrescription [...] externa of left ear, unspecified type [H60.502]Order(s):neomy thm-kpwrcjuck-vwvqiuzkz isone (CORTISPORIN) 3.5-10,000-1 mg/mL-unit/mL-% otic suspensionUse 4 Drops in the left ear four times daily for 7 days.Disp: 1 BottleRfl: 0Prescriptions as of 06/14/2017 Sig: MISCELLANEOUS MEDICAL SUPPLY * Dx: urinary incontinence, pro* LEVOTHYROXINE 75 MCG TABLET Take 1 tablet by mouth once d* * CALCIUM 500 MG TABLET Take one(1) tablet twice eilana* * CHOLECALCIFEROL (VITAMIN D3) * Take one(1) tablet two(2) anthony* OCICDUAR-SGAYWITFI-ILNJ OCORT * Use 4 Drops in the [...] INJURY-CLOSED [S37.10XA] INVALID FOR* POSTOP URETHRAL STRICTUR [QVW4151] INVALID FOR* H/O BCC////MALIG NEOPLASM SKIN FACE [...] ordered this encounter Disp Refills Start End LAJSWYAC-ZVZAGKZID-DKNI OCORT 3.5 MG-* 1 John* 0 06/14/2017 06/21/2017 Route: LEFT EAR Sig: Use 4 Drops in the left ear four times daily for 7 days. Status:Closed by ISHA MORGAN CNP on 06/14/17 [facility] PROGRESSon 06-14-2017 PROGRESS HNO ID: [id number]: Isha Parish) Ernestineervice: (none)Author Type: Nurse PractitionerType: [...] HISTORYNo date: APPENDECTOMY08/10/08: COLONOSCOP W/ OR W/O [facility] SPECNo date: CYSTOSCOPY12/29/13: HERNIA REPAIR HX Comment: Laparoscopic left11/2006: MOHS ANY STAGE EA ADD BLOCK Comment: BCC right lateral [id number]: PAST SURGICAL HISTORY OF Comment: suprapubic prostatectomy02/2011: PAST SURGICAL HISTORY OF Comment: right [id number]: PAST SURGICAL HISTORY OF Comment: left cataractALLERGIES Review of patient's allergies indicates no known allergies.MEDICATIONSMi [employer] ([facility]) [facility] Dx:urinary incontinence, prostate cancerlevothyroxine [...] kg (177 lb 3.2 oz) BMI 25.43 kg/b6Sgymxsxc ExamConstitutional: He is well-developed, well-nourished, and in [...] the affected ear until infection is resolved- XJNGDKWX-UQNTVYBZA-HESI OCORT 3.5 MG-10,000 UNIT/ML-1 % EAR DROPS,SUSPPrescription instructions reviewed with patient as applicable. Patientadvised if symptoms do not improve in 2-3 days or if symptoms worsensooner, to contact their primary care physician. Potential red flagsymptoms discussed with the patient. Reviewed appropriate action plan totake if red flag symptoms occur. Patient agreeable to treatment plan.Isha Morgan CNP Normal [facility] Encounters Encounter Date Encounter Type Care Provider Facility Start: 09-21-2025 ambulatory Malcolm [place] Facility:[facility] Start: 09-21-2025 End: 09-21-2025 Emergency department patient visit Jane Pino Facility:[facility] Start: 09-21-2025 ambulatory Janeherrera Pino Facility:[facility] Start: 09-01-2025 End: 09-01-2025 ambulatory Janeherrera Pino Facility:[facility] Start: 06-14-2017 End: 06-14-2017 Ambulatory MAGI (CAMELID FIBER SORTER) MACHO [facility] Payers Date Payer Category Payer Medicare [id number] 2025 Self-pay 2025 Unknown [id number] Unknown [id number] 2.16.8 [id number] Unknown [id number] 2.16.8 [id number] Unknown [id number] 2.16.8 [id number] Unknown [id number] 2.16.8 [id number] Summary Purpose Family History No Family History Records FoundNo Family History Records Found Advance Directives No Advanced Directives Records FoundNo Advanced Directives Records Found Additional Source Comments (unrecognized sect ion and content) No Status Records FoundNo Status Records Found INFORMATION SOURCE (unrecogn ized section and content) DATE CREATED AUTHOR 05/07/[address] [facility] DATE CREATED AUTHOR AUTHOR'S ORGANIZ ATION 09/23/2025 [facility] FOR RECORDS PERTAINING TO PATIENTS WHO [...] BE BASED ON THE PRIMARY CLINICAL RECORDS. [employer] provides no warranty or guarantee of the accuracy or completeness of information in this document.
== END | disposition home or self-care (01) ==
LOC: CT 06:13
PROVIDERS: PCP Nurse Practitioner Family; Referring Provider Nurse Practitioner Family; Visit Provider Nurse Practitioner Family
DX: R18.8 Other ascites (principal)
CPT/HCPCS: 74177; Q9967

== ENCOUNTER → 2025-10-11 | Outpatient (CLI) | payer MEDICARE, OTHER, SELFPAY ==
[2025-10-11 14:45] LABS: Prothrombin Time (Protime)PT. 18.4 SECONDS (11.7-14.9)
[2025-10-11 15:11] LABS: Ammonia 19.7 umol/L (16-60)
[2025-10-11 15:20] LABS: AST(SGOT) 44 U/L (<=37); Alanine Aminotransfer ALT/SGPT 27 U/L (<=46); Albumin, Serum 4.1 g/dL (3.4-4.8); Alkaline Phosphatase 102 U/L (40-129); Anion Gap 10 (5-15); BUN 24 mg/dL (4-19); BUN/Creat Ratio 24.9 RATIO (10-20); Calcium,Total 9.6 mg/dL (7.6-11.0); Carbon Dioxide 26.3 mmol/L (21.0-32.0); Chloride 104 mmol/L (98-108); Ferritin 927 ng/mL (37-417); Globulin 2.8 g/dL (2.2-4.2); Glucose 150 mg/dL (70-99); Potassium 4.0 mmol/L (3.3-5.1)
[2025-10-11 15:36] LABS: Iron 46 ug/dL (65-175); Iron Binding Capacity,Unsat 193 ug/dL (228-428); LDH 297 U/L (87-241)
[2025-10-11 15:39] LABS: Iron Binding Capacity,Total 239 ug/dL (250-450)
[2025-10-13 15:08] LABS: Anti-Chromatin <0.2 AI (0.0-0.9); Anti-Jo <0.2 AI (0.0-0.9); Anti-dsDNA Ab <1 IU/mL (0-9); SJOGREN'S Anti-SS-A test 0.2 AI (0.0-0.9); SJOGREN'S Anti-SS-B test < 0.2 AI (0.0-0.9)
[2025-10-14 16:09] LABS: Albumin 3.6 g/dL (2.9-4.4); Anti-Smooth Muscle ABS 28 Units (0-19); Gamma Globulin 1.5 g/dL (0.4-1.8); HEPATITIS B SURFACE AG Negative (Negative); Hep C Antibodies Non Reactive (Non Reactive); Immunoglobulin A 226 mg/dL (61-437); Immunoglobulin G 1139 mg/dL (603-1613); Immunoglobulin M 356 mg/dL (15-143); PROEL- TOTAL PROTEIN 6.9 g/dL (6.0-8.5)
== END | disposition home or self-care (01) ==
LOC: LAB 13:53
PROVIDERS: PCP Nurse Practitioner Family; Referring Provider Internal Medicine Gastroenterology; Visit Provider Internal Medicine Gastroenterology
DX: D64.9 Anemia, unspecified (principal); K74.60 Unspecified cirrhosis of liver; E11.9 Type 2 diabetes mellitus without complications; R18.8 Other ascites; D68.9 Coagulation defect, unspecified
CPT/HCPCS: 36415; 80053; 80074; 82105; 82140; 82728; 82784; 83036; 83516; 83540; 83550; 83615; 84165; 85610; 86225; 86235; 86334

== ENCOUNTER → 2025-10-14 | Outpatient (CLI) | payer MEDICARE, OTHER, SELFPAY ==
--- NOTE | 2025-10-14 08:12 | US_ITS ---
PROCEDURE: ABD LIMITED W/ ELASTOGRAPHY REASON FOR EXAM: CIRRHOSIS COMPARISON: None. TECHNIQUE: Procedure Code: USABDLELPARO Modality: US Procedure: ABD LIMITED W/ ELASTOGRAPHY Right upper quadrant abdominal ultrasound. Nat ElastQ Imaging shear wave elastography for non-invasive assessment of liver tissue stiffness. Nat EPIQ Elite. FINDINGS: LIVER: Size: Unremarkable Length: 14.1 cm Echotexture: Coarsened Contour: Normal Lesions: None identified Elastography: EQI Med: 8.9 kPa EQI Med Wali: 1.73 m/s IQR/Med: 4.7 %* GALLBLADDER: Sludge is seen within the gallbladder lumen. COMMON BILE DUCT: Normal . PANCREAS: Visualized portions are unremarkable. The distal body and tail are obscured by bowel gas. Visualized portions of the right kidney are unremarkable. Right upper quadrant ascites. US/ABD Limited w/ Elastography IMPRESSION: Moderate hepatic fibrosis. Small amount of sludge in the gallbladder lumen. Ascites. Reference Values: SRU <1.37 m/s (5.7kPa): No to mild fibrosis 1.37 m/s - 2.2 m/s: Moderate to severe fibrosis >2.2 m/s (15kPa): Significant fibrosis / cirrhosis METAVIR Score F2 or higher: 1.34 m/s (5.7kPa) F3 or higher: 1.55 m/s (7.3kPa) F4: 1.80 m/s (10kPa) * If the IQR/Med is >30%, the variance in the measurements is a large and the a ccuracy of the measurement may be in question. Reading Location: [place] [address]
--- NOTE | 2025-10-14 08:12 | US_ITS ---
PROCEDURE: PARACENTESIS WITH US 10/14/2025 REASON FOR EXAM: ASCITES TECHNIQUE: PARACENTESIS WITH US The procedure as well as the benefits and possible complications including infection and bleeding were explained to the patient. Informed consent was obtained. The patient was in the supine position. A puncture site was identified in the lower midabdomen. The overlying skin was prepped and draped in the usual sterile fashion. Following local anesthetic application, an under direct sonographic guidance, a 5 Faroese catheter was placed into the fluid collection. 1700 mL of hector colored fluid was aspirated. A sample was sent to the laboratory for analysis. COMPARISON: None FINDINGS: Successful ultrasound-guided paracentesis. US/Paracentesis with US IMPRESSION: Successful ultrasound-guided paracentesis with removal of 1700 mL of hector colo red fluid. A specimen was sent to the laboratory for analysis. Reading Location: [place] [id number]
[2025-10-14] MEDS: Lidocaine 2% (20 ml mdv) 20 ML Vial INFILT (09:05)
--- NOTE | 2025-10-14 09:15 | FLU_PTH ---
PATIENT: MARILY BONE LOC: [facility]#:[id number] AGE/SX: 89/M ROOM: RE10/14/[address]: Dr. Fabián Lala DO : 1935 BED: DIS: 10/14/2025 SPEC #: [id number] RECD: 10/14/25 10:05 STATUS: BHAVNA RERaheel #: [id number] AMOL: 10/14/25 09:[address]: Fabián Lala DEPT: CYTOLOGY RECD BY: Kiley Mckenzie ENTERED: 10/14/25 13:52 SP TYPE: Fluid OTHR DR: Jane Pino, DATA SUPPORT SPECIALIST-C Tissues: PARACENTESIS FLUID Procedures: Special Stain Group II Surgery Specimen Level IV Cytospin Fluid HEADER OPERATION: Paracentesis PRE-OP DIAGNOSIS: Ascites TISSUE SUBMITTED: A. Paracentesis fluid DIAGNOSIS CYTOLOGY A. Ascitic fluid, paracentesis (cytospin, cellblock): - No malignant cells identified. CYTOLOGY STUDY Slides are reviewed. CYTOLOGY GROSS Received is 90 ml of paracentesis fluid labeled with the patient's name and and designated per the requisition as Paracentesis. Submitted for cytology and cell block preparation. CPT: 99828,04289
[2025-10-14 10:41] VITALS: BP 130/61; PULSE 82; RESP 18; TEMP 36.4; O2SAT 97
[2025-10-14 10:42] VITALS: BP 137/51; PULSE 71; RESP 18; O2SAT 95
== END | disposition home or self-care (01) ==
LOC: US 08:11
PROVIDERS: PCP Nurse Practitioner Family; Referring Provider Internal Medicine Gastroenterology; Visit Provider Internal Medicine Gastroenterology
DX: R18.8 Other ascites (principal); K74.60 Unspecified cirrhosis of liver
CPT/HCPCS: 49083; 76705; 76981; 88108; 88305; 88313